=== PATIENT | male | born 1955 | race Caucasian/White ===

== ENCOUNTER → 2016-06-25 | Outpatient (CLI) | payer OTHER ==
[2016-06-27 03:47] LABS: Cardiolipin Ab IgG <9.0 GPL (<15); Cardiolipin Ab IgM <9.0 MPL (<12.5)
[2016-06-28 13:34] LABS: Protein C Antigen 92 % (72-160)
== END | disposition home or self-care (01) ==
LOC: LABWHC1 12:53
PROVIDERS: ATTEND Internal Medicine
DX: I26.99 Other pulmonary embolism without acute cor pulmonale (principal)
CPT/HCPCS: 36415; 81240; 81241; 81291; 83090; 85300; 85302; 85305; 86147

== ENCOUNTER → 2017-12-21 | Outpatient (CLI) | payer OTHER ==
--- NOTE | 2017-12-21 13:27 | CT ---
EXAMINATION TYPE: CT chest w con DATE OF EXAM: 12/21/2017 COMPARISON: HISTORY: solitary pulmonary nodule CT DLP: 116.2 mGycm, Automated exposure control for dose reduction was used. CONTRAST: Performed injected with 100mL mL of Isovue 300. TECHNIQUE: Axial images were obtained at 5 mm thick sections. Reconstructed images are reviewed on [employer] computer in the coronal plane. FINDINGS: Portion of the thyroid visualized is normal. Emphysematous changes are present through the lung quarles. There is a 1.1 x 0.8 cm density within the periphery of the right midlung. Series 4 image 28. Some ad ditional pneumonitis changes inferior to this lesion. This has enlarged from 2016. Small nodules in the periphery of the right middle lobe measuring 0.5 cm. Series 4 image 35. Small tr iangular area of increased densities along medial posterior pleural margin on the right measuring 0.7 cm. Series 4 image 38. A 0.8 cm nodular densities at the peripheral right lung base. Series 4 image 56. An additional oval n odule abutting the pleural surface measuring 1.1 x 0.6 cm is in the posterior lateral right lung base . Series 4 image 65. There may be a 1.3 cm right suprahilar lymph node. Additional lymphadenopathy is not enlarged by CT criteria. Few small left axillary lymph nodes are noted. The ascending aorta diameter at the level of the main pulmonary artery is 2.7 cm. The main pulmonary artery diameter at the bifurcation is 2.[address] sections are obtained through the upper abdomen. There are multiple small scattered hypode nsities within the liver. Some of these may be hepatic cysts. However, some more intermediate density are also present suggesting the possibility of metastatic lesions. The adrenal glands appear normal. Note is made of a small hiatal hernia. IMPRESSIONS: 1. Scattered nodules within the right lung discussed above. 2. Subtle hypodensities may be within the liver. Metastatic disease should be considered. 3. Clinical consideration for PET CT for additional workup is recommended
== END | disposition home or self-care (01) ==
LOC: RADCTMAIN 06:50
PROVIDERS: ATTEND Internal Medicine
DX: R91.8 Other nonspecific abnormal finding of lung field (principal)
CPT/HCPCS: 71260; Q9967

== ENCOUNTER → 2018-01-02 | Outpatient (CLI) | payer OTHER ==
--- NOTE | 2018-01-02 11:49 | US ---
EXAMINATION TYPE: US abdomen complete DATE OF EXAM: 01/02/2018 COMPARISON: CT chest 12/21/17 CLINICAL HISTORY: K76.89 other spec dis of liver. EXAM MEASUREMENTS: Liver Length: 13.5 cm Gallbladder Wall: 0.1 cm CBD: 0.3 cm Spleen: 7.0 cm Right Kidney: 10.2 x 4.4 x 4.1 cm Left Kidney: 10.5 x 5.2 x 5.1 cm Pancreas: Obscured by bowel gas, duct = 0.3 cm Liver: Multiple tiny cysts seen throughout liver, largest = 1 cm Gallbladder: polyps noted on anterior and posterior wall = 0.5 cm Evidence for sonographic Benitez's sign: No CBD: wnl Spleen: wnl, partially obscured by overlying bowel gas. Right Kidney: wnl Left Kidney: wnl Upper IVC: wnl Abd Aorta: wnl The visualized liver is homogenous. A few tiny thin-walled cysts are marked throughout the liver on i mages saved by technologist The intrahepatic portion of the IVC and visualized abdominal aorta are wi thin normal limits. There is no evidence of shadowing mobile cholelithiasis. Common bile duct is un remarkable. The pancreas is obscured by overlying bowel gas on images saved. The visualized portion of spleen is unremarkable. Kidneys are symmetric and free of hydronephrosis. No renal lesions are seen. IMPRESSION: Few small thin-walled simple appearing cysts are scattered throughout the liver on images saved. Findings correlate with recent CT.
== END | disposition home or self-care (01) ==
LOC: RADUSWWP 10:45
PROVIDERS: ATTEND Internal Medicine
DX: K76.89 Other specified diseases of liver (principal)
CPT/HCPCS: 76700

== ENCOUNTER → 2018-07-07 | Outpatient (CLI) | payer OTHER ==
--- NOTE | 2018-07-09 06:17 | PE ---
EXAMINATION TYPE: PET CT fusion skull to thigh DATE OF EXAM: 07/07/2018 COMPARISON: Chest CT December 21, 2017 HISTORY: Solitary pulmonary nodule, abnormal CT. TECHNIQUE: Following the intravenous administration of 10.908 mCi of F-18 FDG, whole body images are performed from the skull base to the midthigh. Images are reviewed on the computer in the coronal, axial, and sagittal planes. Reconstructed rotating images are created on independent workstation and reviewed on the computer. A noncontrast CT is performed in conjunction with the PET scan. SCAN: Initial Scan FINDINGS: SKULL BASE AND NECK: No areas of suspicious hypermetabolic uptake are present. CHEST, MEDIASTINUM, AND HILAR REGION: Background fairly advanced emphysematous change is seen. There is some scarlike opacity in the lateral aspect inferior posterior right upper lobe with a hypermetabo lic 10 x 9 mm nodule axial image 104, max SUV is 8.3. No additional areas of suspicious hypermetabolic nodules or adenopathy is identified. Stable 4 to 5 m m ametabolic nodule right middle lobe axial image 111 is noted. Stable 6 x 6 mm ametabolic subpleural right lower lobe nodule axial image 138. Stable 8 x 5 mm subpleural nodule right lung base posterior ly axial image 149 is ametabolic. Prominent right tracheobronchial lymph node measuring 1.5 x 0.9 cm on axial image 110 is ametabolic. ABDOMEN AND PELVIS: No areas of abnormal hypermetabolic uptake. OSSEOUS STRUCTURES: No areas of abnormal hypermetabolic uptake. OTHER CT: Mild calcified plaque bilateral carotid bulbs. Mild coronary artery calcification which is noted marker for underlying coronary artery disease. Scattered subcentimeter low dense lesions throughout the liver are too small to further characterize but presumed benign. Mild/moderate calcified plaque of aorta extends into branch vessels. There is enlarged prostate gland. Bladder wall is mild to moderately concentrically thickened. Findin gs are consistent with outlet obstruction related to BPH, correlate clinically. Scattered pelvic phle boliths are seen. Some facet arthropathy lower lumbar spine is present. IMPRESSION: Advanced emphysematous change with hypermetabolic uptake in the lateral inferior posterio r right upper lung nodule. Smaller nodules are ametabolic. No adenopathy or metastatic disease is isra ntified.
== END | disposition home or self-care (01) ==
LOC: RADPETMAIN 10:22
PROVIDERS: ATTEND Internal Medicine
DX: J43.9 Emphysema, unspecified (principal); R91.8 Other nonspecific abnormal finding of lung field
CPT/HCPCS: 78815; A9552

== ENCOUNTER → 2018-07-24 | Outpatient (CLI) | payer OTHER ==
--- NOTE | 2018-07-24 10:45 | CT ---
EXAMINATION TYPE: CT brain wo/w con DATE OF EXAM: 07/24/2018 COMPARISON: Correlation PET/CT 07/07/2018 HISTORY: 63-year-old male with Headaches, history of blood clots, right lung nodule TECHNIQUE: Examination was done in axial plane before and after intravenous contrast. 100 mL Isovue -300 IV contrast was administered. Coronal and sagittal reconstructions performed. CT DLP: 2330 mGycm Automated exposure control for dose reduction was used. FINDINGS: There is no evidence of acute intracranial hemorrhage, acute ischemic changes, mass, mass-effect, or extra-axial fluid collection. There is no effacement of cerebral sulci or basal subarachnoid cister ns. There is no hydrocephalus. There is no midline shift. Trujillo-white matter distinction is preserv ed. No enhancing intracranial lesions. Dural venous sinuses are patent. Scattered mild mucosal thickening within the ethmoid air cells. Globes are intact. Mastoid air cells are well pneumatized. IMPRESSION: No acute intracranial abnormality seen. No enhancing intracranial lesions. Mild chronic ethmoid sinus disease.
== END | disposition home or self-care (01) ==
LOC: RADCTMAIN 09:08
PROVIDERS: ATTEND Internal Medicine Hematology & Oncology
DX: R51 Headache (principal); Z88.0 Allergy status to penicillin; Z88.1 Allergy status to other antibiotic agents
CPT/HCPCS: 70470; Q9967

== ENCOUNTER → 2018-07-26 | Outpatient (CLI) | payer OTHER ==
[2018-07-26 17:17] LABS: Basophils % (A) 0 %; Eosinophils % (A) 0 %; HCT 46.6 % (39.0-53.0); HGB 15.6 gm/dL (13.0-17.5); Lymphocytes # (A) 0.9 k/uL (1.0-4.8); Lymphocytes % (A) 6 %; MCH 30.5 pg (25.0-35.0); MCHC 33.5 g/dL (31.0-37.0); Mean Platelet Volume 6.3; Monocytes # (A) 0.4 k/uL (0-1.0); Monocytes % (A) 3 %; Neutrophils # (A) 12.2 k/uL (1.3-7.7); Neutrophils % (A) 90 %; Platelet Count 375 k/uL (150-450); RBC 5.12 m/uL (4.30-5.90); RDW 12.5 % (11.5-15.5); WBC 13.6 k/uL (3.8-10.6)
[2018-07-26 22:59] LABS: Anion Gap 7.6 mmol/L (4.00-12.00); Carbon Dioxide 28.4 mmol/L (21.6-31.8); Potassium 4.8 mmol/L (3.5-5.5)
== END ==
LOC: LABWHC1 16:35
PROVIDERS: ATTEND Thoracic Surgery (Cardiothoracic Vascular Surgery)
DX: Z01.818 Encounter for other preprocedural examination (principal); Z01.812 Encounter for preprocedural laboratory examination
CPT/HCPCS: 36415; 80051; 82565; 82947; 84520; 85025; 93005

== ENCOUNTER 2018-08-02 09:27 | Inpatient (IN) | payer OTHER ==
[~2018-08-02 09:27] MED LIST: CLINDAMYCIN 900 MG in DEXTROSE 5% IN WATER 50 ML IVPB ONE; DEXAMETHASONE SOD PHOSPHATE 10 MG/ML 1 ML VIAL IV ONE; LACTATED RINGERS 1,000 ML IV SCH; LIDOCAINE 1% 20 ML VIAL (10MG/ML) FOR IV START INTRADERMA PRN; MIDAZOLAM (PF) 2 MG/2 ML VIAL IV PRN; ONDANSETRON 4 MG/2 ML VIAL IVP ONE; SCOPOLAMINE 1.5MG/72HR PATCH TRANSDERM ONE
[2018-08-02] MEDS ORDERED: fentaNYL (PF) 50 MCG/ML 2 ML AMP ONE (11:47)
[2018-08-02] MEDS ORDERED: SUCCINYLCHOLINE CHLORIDE 100 MG/5 ML SYR IV ONE (11:47)
[2018-08-02] MEDS ORDERED: GLYCOPYRROLATE 0.2 MG/ML 2 ML VIAL ONE (11:47)
[2018-08-02] MEDS ORDERED: MIDAZOLAM 2 MG/2 ML VIAL ONE (11:47)
[2018-08-02] MEDS ORDERED: HYDROmorphone (PF) 1 MG/ML ONE (11:47)
[2018-08-02] MEDS ORDERED: NEOSTIGMINE 1 MG/ML 10 ML VIAL ONE (11:47)
[2018-08-02] MEDS ORDERED: PHENYLEPHRINE-0.9% NACL SYG 1 MG/10 ML SYRINGE ONE (11:47)
[2018-08-02] MEDS ORDERED: ROCURONIUM BROMIDE 10 MG/ML 10 ML VIAL IV ONE (11:47)
[2018-08-02] MEDS ORDERED: PROPOFOL 10 MG/ML 20 ML VIAL IV ONE (11:47)
[2018-08-02] MEDS ORDERED: LIDOCAINE 1% INJ 10MG/ML (20 ML MDV) ONE (11:47)
[2018-08-02] MEDS ORDERED: BUPIVACAINE (PF) 0.5% 30 ML VIAL SQ ONE (12:26)
[2018-08-02] MEDS ORDERED: LACTATED RINGERS 1,000 ML IV ONE (12:42)
[2018-08-02] MEDS ORDERED: VARENICLINE 0.5 MG TAB PO SCH (12:45)
--- NOTE | 2018-08-02 12:51 | P.OP ---
Date of Procedure: 08/02/18 Preoperative Diagnosis: Right upper lobe mass Postoperative Diagnosis: Same Procedure(s) Performed: Wedge resection right upper lobe mass Anesthesia: GIN Surgeon: Gilberto Nickerson Ophthalmic Photographer #1: Felipe Hamilton Estimated Blood Loss (ml): 5 IV fluids (ml): 1,000 Urine output (ml): 0 Pathology: other (Wedge resection right upper lobe sent for pathology and culture) Condition: stable Disposition: PACU Indications for Procedure: 63-year-old male had computed tomography scan demonstrating multiple nodules in the right lung. PET scan was performed at an interval. This showed uptake in one nodule in the right upper lobe which was the largest nodule in which had increased in size from the time of the computed tomography scan. Resection was indicated for diagnosis. Operative Findings: Proximally 1 cm nodule in the right upper lobe resected with good gross margins. Cutting into the nodule revealed solid tissue consistent with tumor. A small piece was sent for culture. Description of Procedure: The patient was brought to the operating room, placed supine on the operating table, anesthetized and intubated. Double lumen endotracheal tube was positi oned appropriately with fiberoptic bronchoscopy and secured. The patient was turned in the left lateral decubitus position and the right chest sterilely prepped and draped. 3 one-inch incisions were made in the right chest. Single lung ventilation was initiated. Video thoracoscope was introduced. The lung did not deflate immediately due to poor compliance. After careful palpation of the right upper lobe in the area indicated by the CAT scan the nodule was identified. A broad wedge resection was performed with multiple firings of Endo BELIA stapler. Specimen was placed in an Endo Catch bag and brought out onto the field. 28-German chest tube was placed through separate stab incision and positioned posterior apically. It was secured with 0 Ethibond suture. The lung was inflated under thoracoscopic visualization. Scope was then removed and the incisions closed with layers of Vicryl suture. Skin glue and dry sterile dressings were applied. The specimen was cut on the back table with the findings as noted above.
[2018-08-02] MEDS: HYDROmorphone 0.5 MG/0.5 ML SYRINGE IVP PRN ×2 (13:05→13:19)
--- NOTE | 2018-08-02 13:16 | XR ---
EXAMINATION TYPE: XR chest 1V portable DATE OF EXAM: 08/02/2018 CLINICAL HISTORY: Post-VATS . TECHNIQUE: Single AP portable frontal view of the chest is obtained. COMPARISON: Chest CT December 21, 2017. PET/CT July 07, 2018. FINDINGS: There is new right apical chest tube. There is background chronic emphysematous change wit h right upper lung atelectasis and/or edema. Mild overall interstitial edema is present bilaterally. Cardiac silhouette size appears within normal limits. Osseous structures are intact. Interval resecti on of lateral right upper lung nodule or neoplasm. IMPRESSION: Interval right-sided surgery with right apical chest tube. Mild bilateral interstitial ed lesley with slightly more prominent focal edema and/or atelectasis right upper lung. No significant pneu mothorax.
[2018-08-02] MEDS ORDERED: IPRATROPIUM-ALBUTEROL 3 ML NEB IH PRN (14:20)
[2018-08-02] MEDS ORDERED: DEXTROSE 5%-0.45% NACL 1,000 ML IV SCH (14:20)
[2018-08-02] MEDS ORDERED: ONDANSETRON 4 MG/2 ML VIAL IVP PRN (14:20)
[2018-08-02] MEDS: traMADol 50 MG TAB PO SCH ×3 (16:15→22:59)
--- NOTE | 2018-08-02 16:23 | P.CNPUL ---
History of Present Illness Consult date: 08/02/18 Reason for consult: other (Status post resection of right upper lobe, COPD.) Chief complaint: Status post wedge resection right upper lobe History of present illness: This is a 63-year-old white male with history of abnormal CT of the chest showing multiple pulmonary nodules. However one nodule in the right upper lobe has been showing increased in size, and he had abnormal PET scan showing increased activity in the right upper lobe nodule itself. Patient was evaluated last in my office on 06/12/2018, and he was eventually referred to Dr. Nickerson. Patient is now status post right upper lobe wedge resection, postoperatively was asked to see him on consultation. Patient is known to have history of multiple medical problems including COPD, tobacco dependence syndrome, previous history of pulmonary embolism. His FEV1 is normal in the range of 66%, FEV1/FVC is 56%, DLCO is in the range of 44%. Patient was seen today postoperatively, seems to be very comfortable, in no distress, postoperative chest x-ray showed right sided chest tube in place, and no evidence of pneumothorax. Patient denies any cough wheezing shortness of breath, denies any chest pain. Review of Systems Constitutional: Denies weight loss, fevers chills, night sweats. Eyes: Denies diplopia blurred vision. Ears: Denies earache nose, mouth and throat: Denies sore throat, no nasal discharge, . Cardiovascular: Presently denies any chest pain, no palpitations, no orthopnea, no PND. Respiratory: As noted in HPI. No cough no wheezing no shortness of breath no chest pain. Gastrointestinal: Has nausea vomiting abdominal pain melena or hematemesis. Genitourinary: Denied dysuria frequency urgency. Musculoskeletal: Denies arthralgia or myalgia. Integumentary: Denies any rashes Neurological: No headache no blurred vision no dizziness.. Psychiatric: Denies symptoms of active depression Endocrine: Denies heat or cold intolerance. Hematologic: Denies clotting bleeding or bruising. Past Medical History Past Medical History: COPD, Pneumonia, Pulmonary Embolus (PE) Additional Past Medical History / Comment(s): PE 2017, recent resp. infection- finished rx- symptoms cleared, History of Any Multi-Drug Resistant Organisms: None Reported Past Surgical History: Orthopedic Surgery Additional Past Surgical History / Comment(s): left shoulder- ELECTROCUTED HAD TO REMOVE BONE Past Anesthesia/Blood Transfusion Reactions: No Reported Reaction Smoking Status: Former smoker - Past Family History Father Family Medical History: Cancer Additional Family Medical History / Comment(s): . Brother(s) Family Medical History: Cancer Medications and Allergies Home Medications Medication Instructions Recorded Confirmed Type Albuterol Sulfate [Proair Hfa] 1 - 2 puff INHALATION RT-Q4H PRN 07/30/18 08/02/18 History Aspirin [Adult Low Dose Aspirin EC] 81 mg PO DAILY 07/30/18 08/02/18 History Benzonatate [Benzonatate Perle] 200 mg PO HS 07/30/18 08/02/18 History Cholecalciferol (Vitamin D3) 5,000 unit PO DAILY 07/30/18 08/02/18 History [Vitamin D3] Sildenafil Citrate [Viagra] 100 mg PO DAILY PRN 07/30/18 08/02/18 History Varenicline Tartrate [Chantix 0.5 mg PO DIRECTED 07/30/18 08/02/18 History Starter Pack] Allergies Allergy/AdvReac Type Severity Reaction Status Date / Time ciprofloxacin [From Cipro] Allergy Swelling/flushed Verified 08/02/18 14:37 face Penicillins Allergy Swelling/flushed Verified 08/02/18 14:37 face Physical Exam Vitals: Vital Signs Temp Pulse Resp BP Pulse Ox 08/02/18 13:45 79 18 130/72 97 08/02/18 13:30 83 18 126/72 100 08/02/18 13:15 67 18 125/74 100 08/02/18 12:57 97 F L 78 18 126/73 100 08/02/18 09:44 98.7 F 102 H 16 133/81 97 Intake and Output 08/02/18 08/02/18 08/02/18 06:59 14:59 22:59 Intake Total 1256 Output Total 15 Balance 1241 Intake: IV 1256 Output: Estimated Blood Loss 15 Other: # Voids 0 # Bowel Movements 0 Physical Exam: Revealed a 63-year-old white male in no distress. Head: Atraumatic, normocephalic. HEENT:[Neck is supple.] [No neck masses.] [No thyromegaly.] [No JVD.] PERRLA, EOMI, no icterus. Chest: [Clear throughout, no crackles, no rhonchi, no wheezes.] Right-sided chest tube was noted. Cardiac Exam: [Normal S1 and S2, no S3 gallop, no murmur.] Abdomen: [Soft, nontender, no megaly, no rebound, no guarding, normal bowel sounds.] Extremities: [No clubbing, no edema, no cyanosis.] Neurological Exam: [No focal neurologic deficit.] Alert oriented 3. Psychiatric: Normal mood affect and mental status examination. Lymphatics: No lymphadenopathy. Skin: No rashes. Results - Diagnostic Findings Chest x-ray: image reviewed (As noted in HPI.) Assessment and Plan Assessment: Impression: Status post right upper lobe wedge resection for suspicious right upper lobe pulmonary nodule. Postoperative day #0. 2 moderate severe COPD, presently asymptomatic. 3 history of pulmonary embolism 4 tobacco dependence syndrome Recommendation: Continue present treatment plan including pain control, incentive spirometry, early ambulation, bronchodilators, discussed his condition with him and with his family at bedside. We'll continue to follow. Time with Patient: Greater than 30
[2018-08-02] MEDS: IPRATROPIUM-ALBUTEROL 3 ML NEB IH SCH ×2 (16:55→21:09)
[2018-08-02] MEDS: ceFAZolin IN SWFI 2 GM/20 ML SYRINGE IVP SCH (18:03)
[2018-08-02] MEDS: KETOROLAC 30 MG/ML 1 ML VIAL IVP SCH ×2 (18:03→23:00)
[2018-08-02] MEDS: HEPARIN SODIUM,PORCINE 5,000 UNIT/ML 1 ML VIAL SQ SCH ×2 (18:05→23:00)
[2018-08-02] MEDS: VARENICLINE 1 MG TAB PO SCH (20:12)
[2018-08-02] MEDS: BENZONATATE 100 MG CAP PO SCH (20:12)
[2018-08-02] MEDS: SYMBICORT 160-4.5 MCG INHALER INHALATION SCH (21:09)
[2018-08-03 02:00] LABS: Glucose,Whole Blood 129 mg/dL (75-99)
[2018-08-03] MEDS: ceFAZolin IN SWFI 2 GM/20 ML SYRINGE IVP SCH (02:16)
[2018-08-03] MEDS: KETOROLAC 30 MG/ML 1 ML VIAL IVP SCH ×3 (06:28→17:31)
[2018-08-03 07:54] LABS: Anion Gap 7 mmol/L; Blood Urea Nitrogen 17 mg/dL (9-20); Calcium 9.1 mg/dL (8.4-10.2); Carbon Dioxide 29 mmol/L (22-30); Chloride 97 mmol/L (98-107); Glucose 123 mg/dL (74-99); Potassium 5.4 mmol/L (3.5-5.1); Sodium 133 mmol/L (137-145)
[2018-08-03 07:58] LABS: Basophils % (A) 0 %; Eosinophils % (A) 0 %; HCT 45.1 % (39.0-53.0); HGB 14.6 gm/dL (13.0-17.5); Lymphocytes # (A) 0.9 k/uL (1.0-4.8); Lymphocytes % (A) 7 %; MCH 29.7 pg (25.0-35.0); MCHC 32.4 g/dL (31.0-37.0); MCV 91.7 fL (80.0-100.0); Mean Platelet Volume 6.6; Monocytes % (A) 8 %; Neutrophils # (A) 10.3 k/uL (1.3-7.7); Neutrophils % (A) 83 %; Platelet Count 326 k/uL (150-450); RBC 4.92 m/uL (4.30-5.90); WBC 12.5 k/uL (3.8-10.6)
--- NOTE | 2018-08-03 08:12 | XR ---
EXAMINATION TYPE: XR chest 2V DATE OF EXAM: 08/03/2018 COMPARISON: 08/02/2018 TECHNIQUE: PA and lateral views submitted. HISTORY: Post VATS FINDINGS: There is new right apical chest tube. There is background chronic emphysematous change with right upp er lung atelectasis and/or edema. Mild overall interstitial edema is present bilaterally. Cardiac shawn houette size appears within normal limits. Osseous structures are intact. Proximal 5% right apical pn eumothorax. Vague nodularity left upper lobe. IMPRESSION: 1. Postoperative change appears stable with approximate 5% right apical pneumothorax. 2. Correlate for underlying COPD. 3. There is vague 1 cm nodularity left upper lobe. Apical lordotic
[2018-08-03] MEDS: SYMBICORT 160-4.5 MCG INHALER INHALATION SCH ×2 (08:26→19:59)
[2018-08-03] MEDS: IPRATROPIUM-ALBUTEROL 3 ML NEB IH SCH ×4 (08:26→19:59)
[2018-08-03] MEDS: traMADol 50 MG TAB PO SCH ×4 (08:46→21:51)
[2018-08-03] MEDS: HEPARIN SODIUM,PORCINE 5,000 UNIT/ML 1 ML VIAL SQ SCH ×2 (08:47→17:30)
[2018-08-03] MEDS: ASPIRIN 81 MG PO SCH (08:48)
[2018-08-03] MEDS: VARENICLINE 1 MG TAB PO SCH ×2 (08:48→21:53)
[2018-08-03] MEDS: CHOLECALCIFEROL 1,000 UNIT TAB PO SCH (08:48)
--- NOTE | 2018-08-03 11:30 | P.PN ---
Subjective Progress Note Date: 08/03/18 Principal diagnosis: Right upper lobe mass. Previous medical history of recent smoking cessation with prior [id number] history, COPD with preoperative FEV1 66% of predicted, pulmonary embolism and 2017, and family history of cancer. POD #1 wedge resection right upper lobe mass The patient sitting up in bed in no acute distress on the cardiac stepdown unit. Denies pain or shortness of breath. Actively using incentive spirometry. Positive intermittent air leak present in right pleural chest tube which has been to waterseal since last night. Objective - Vital Signs Vital signs: Vital Signs Temp 98 F 08/03/18 08:00 Pulse 78 08/03/18 08:41 Resp 18 08/03/18 08:00 BP 113/64 08/03/18 08:00 Pulse Ox 93 L 08/03/18 08:26 Intake & Output 08/02/18 08/03/18 08/03/18 18:59 06:59 18:59 Intake Total 1256 1240 236 Output Total 15 7 Balance 1241 1233 236 Weight 65 kg Intake: IV 1256 Intake, IV Titration 440 Amount Dextrose 5%-0.45% NaCl 1, 440 000 ml @ 40 mls/hr IV . Q24H MATTHEW Rx#:[id number] Oral 800 236 Output: Chest Tube Drainage 7 Chest Tube Right Anterior 7 Chest Estimated Blood Loss 15 Other: Voiding Method Urinal Urinal # Voids 1 1 # Bowel Movements 0 - Constitutional General appearance: Present: cooperative, no acute distress - Respiratory Details: Lungs sounds diminished bilaterally. Respirations even, nonlabored. Currently on room air with oxygen saturation 96%. Able to achieve 1500 mL on his incentive spirometry. Strong cough. Right pleural chest tube to waterseal, no drainage overnight, positive intermittent air leak present. - Cardiovascular Details: S1, S2 present. Regular rate and rhythm, sinus rhythm on telemetry. Palpable peripheral pulses bilaterally. No edema present. No calf pain or tenderness noted. SCDs present. - Gastrointestinal Gastrointestinal Comment(s): Abdomen soft, nontender, nondistended. Active bowel sounds 4 quadrants. Tolerating diet. - Genitourinary Genitourinary Comment(s): Voiding clear, yellow urine. - Integumentary Integumentary Comment(s): Skin is warm and dry with evidence of good perfusion. Right pleural chest tube site covered with dry intact dressing. - Neurologic Neurologic: Present: CNII-XII intact - Musculoskeletal Musculoskeletal: Present: gait normal, strength equal bilaterally - Psychiatric Psychiatric: Present: A&O x's 3, appropriate affect, intact judgment & insight - Allied health notes Allied health notes reviewed: nursing - Labs CBC & Chem 7: 08/03/18 06:54 08/03/18 06:54 Labs: Abnormal Lab Results - Last 24 Hours (Table) 08/03/18 08/03/18 08/03/18 Range/Units 01:58 06:54 06:54 WBC 12.5 H (3.8-10.6) k/uL Neutrophils # 10.3 H (1.3-7.7) k/uL Lymphocytes # 0.9 L (1.0-4.8) k/uL Sodium 133 L (137-145) mmol/L Potassium 5.4 H (3.5-5.1) mmol/L Chloride 97 L (98-107) mmol/L Glucose 123 H (74-99) mg/dL POC Glucose (mg/dL) 129 H (75-99) mg/dL Microbiology - Last 24 Hours (Table) 08/02/18 12:44 Gram Stain - Preliminary Lung - Right Upper Lobe Tissue Culture - Preliminary 08/02/18 12:44 Acid Fast Bacilli Smear - Final Lung - Right Upper Lobe Acid Fast Bacilli Culture - Preliminary 08/02/18 12:44 Fungal Culture - Preliminary Lung - Right Upper Lobe - Imaging and Cardiology Chest x-ray: report reviewed, image reviewed Assessment and Plan Assessment: 1. Right upper lobe mass, status post wedge resection 2. Recent smoking cessation with prior to [id number] history 3. COPD with preoperative FEV1 66% of predicted 4. History of pulmonary embolism in 2017 on no current anticoagulation 5. Family history of cancer Plan: 1. Will continue right pleural chest tube for another 24 hours on waterseal. Monitor for resolution of air leak 2. Will obtain chest x-ray tomorrow morning. If chest x-ray stable and no air leak present likely will discontinue right pleural chest tube. 3. Encourage incentive spirometry is 10 times every hour while awake. 4. Pain control with current medication regimen. 5. Increase activity, ambulate as tolerated. 6. Encourage continued smoking cessation. 7. Bronchodilators, inhaled steroids per pulmonology. 8. More recommendations to follow. Time with Patient: Greater than 30
--- NOTE | 2018-08-03 14:27 | P.PN ---
Subjective Progress Note Date: 08/03/18 Principal diagnosis: Status post right upper lobe wedge resection for a suspicious right upper lobe pulmonary nodule, postoperative day 1 This is a 63-year-old white male with history of abnormal CT of the chest showing multiple pulmonary nodules. However one nodule in the right upper lobe has been showing increased in size, and he had abnormal PET scan showing increased activity in the right upper lobe nodule itself. Patient was evaluated last in my office on 06/12/2018, and he was eventually referred to Dr. Nickerson. Patient is now status post right upper lobe wedge resection, postoperatively was asked to see him on consultation. Patient is known to have history of multiple medical problems including COPD, tobacco dependence syndrome, previous history of pulmonary embolism. His FEV1 is normal in the range of 66%, FEV1/FVC is 56%, DLCO is in the range of 44%. Patient was seen today postoperatively, seems to be very comfortable, in no distress, postoperative chest x-ray showed right sided chest tube in place, and no evidence of pneumothorax. Patient denies any cough wheezing shortness of breath, denies any chest pain. On 08/03/2018 patient is seen in follow-up on selective care unit, this is postoperative day 1, status post right upper lobe wedge resection for suspicious right upper lobe pulmonary nodule. Patient is calm and comfortable, he is resting in bed, in no acute distress, lung sounds are essentially clear on today's exam, his incentive spirometry effort is 2000, his pain is well controlled with oral medications, and patient is splinting his incision with deep breathing and coughing. 's been ambulating to the bathroom, tolerating activity well, vital signs are stable, room air pulse ox is 97%, patient is afebrile, hemodynamically stable, today chest x-ray has been reviewed with Dr. Mcgrath showing postoperative changes of the stable 5% right apical pneumothorax, underlying COPD, and a vague 1 cm nodularity in the left upper lobe. No acute events overnight, today's lab work has been noted Objective - Vital Signs Vital signs: Vital Signs Temp 97.4 F L 08/03/18 11:37 Pulse 88 08/03/18 13:23 Resp 18 08/03/18 11:37 BP 130/64 08/03/18 11:37 Pulse Ox 97 08/03/18 11:37 Intake & Output 08/02/18 08/03/1819 18:59 06:59 18:59 Intake Total 1256 1240 236 Output Total 15 7 Balance 1241 1233 236 Weight 65 kg Intake: IV 1256 Intake, IV Titration 440 Amount Dextrose 5%-0.45% NaCl 1, 440 000 ml @ 40 mls/hr IV . Q24H [facility] Rx#:[id number] Oral 800 236 Output: Chest Tube Drainage 7 Chest Tube Right Anterior 7 Chest Estimated Blood Loss 15 Other: Voiding Method Urinal Urinal # Voids 1 1 # Bowel Movements 0 - Exam GENERAL EXAM: Alert, pleasant, 63-year-old white male, on room air comfortable in no apparent distress. HEAD: Normocephalic/atraumatic. EYES: Normal reaction of pupils, equal size. Conjunctiva pink, sclera white. NOSE: Clear with pink turbinates. THROAT: No erythema or exudates. NECK: No masses, no JVD, no thyroid enlargement, no adenopathy. CHEST: No chest wall deformity. Symmetrical expansion. Right-sided chest tube in place, with occasional air leak LUNGS: Equal air entry with no crackles, wheeze, rhonchi or dullness. CVS: Regular rate and rhythm, normal S1 and S2, no gallops, no murmurs, no rubs ABDOMEN: Soft, nontender. No hepatosplenomegaly, normal bowel sounds, no guarding or rigidity. EXTREMITIES: No clubbing, no edema, no cyanosis, 2+ pulses and upper and lower extremities. MUSCULOSKELETAL: Muscle strength and tone normal. SPINE: No scoliosis or deformity SKIN: No rashes CENTRAL NERVOUS SYSTEM: Alert and oriented -3. No focal deficits, tone is normal in all 4 extremities. PSYCHIATRIC: Alert and oriented -3. Appropriate affect. Intact judgment and insight. - Labs CBC & Chem 7: 08/03/18 06:54 08/03/18 06:54 Labs: Abnormal Lab Results - Last 24 Hours (Table) 08/03/18 08/03/18 08/03/18 Range/Units 01:58 06:54 06:54 WBC 12.5 H (3.8-10.6) k/uL Neutrophils # 10.3 H (1.3-7.7) k/uL Lymphocytes # 0.9 L (1.0-4.8) k/uL Sodium 133 L (137-145) mmol/L Potassium 5.4 H (3.5-5.1) mmol/L Chloride 97 L (98-107) mmol/L Glucose 123 H (74-99) mg/dL POC Glucose (mg/dL) 129 H (75-99) mg/dL Microbiology - Last 24 Hours (Table) 08/02/18 12:44 Gram Stain - Preliminary Lung - Right Upper Lobe Tissue Culture - Preliminary 08/02/18 12:44 Acid Fast Bacilli Smear - Final Lung - Right Upper Lobe Acid Fast Bacilli Culture - Preliminary 08/02/18 12:44 Fungal Culture - Preliminary Lung - Right Upper Lobe Assessment and Plan Plan: Assessment Status post right upper lobe wedge resection for suspicious right upper lobe pulmonary nodule. Postoperative day #0. 2 moderate severe COPD, presently asymptomatic. 3 history of pulmonary embolism 4 tobacco dependence syndrome Plan: Encouraging deep breathing and coughing, incentive spirometry use, ambulation, pain control. Tandem bronchodilators, today's chest x-ray has been reviewed, shows stable postoperative changes, and 5% right apical pneumothorax, right- sided chest tube with small occasional leak. Pain is under good control. Tolerating ambulation, will continue to follow I performed a history & physical examination of the patient and discussed their management with my nurse practitioner, Leti Gallagher. I reviewed the nurse practitioner's note and agree with the documented findings and plan of care. Lung sounds are positive for clear breath sounds. The findings and the impression was discussed with the patient. I attest to the documentation by the nurse practitioner. Time with Patient: Less than 30
[2018-08-03] MEDS: BENZONATATE 100 MG CAP PO SCH (21:52)
[2018-08-04] MEDS: KETOROLAC 30 MG/ML 1 ML VIAL IVP SCH ×3 (00:34→11:40)
[2018-08-04] MEDS: HEPARIN SODIUM,PORCINE 5,000 UNIT/ML 1 ML VIAL SQ SCH ×2 (00:34→08:28)
--- NOTE | 2018-08-04 06:29 | XR ---
EXAMINATION TYPE: XR chest 2V DATE OF EXAM: 08/04/2018 HISTORY: Post VATS. REFERENCE: Previous study dated 08/03/2018. FINDINGS: Patient's right-sided chest tubes remain in place, unchanged in appearance. I do not see ev idence of a pneumothorax at this time. There are underlying changes of COPD with chronic interstitial fibrosis. The heart is not enlarged. There is a small right effusion. IMPRESSION: 1. COPD. 2. I DO NOT IDENTIFY DEFINITE PNEUMOTHORAX AT THIS TIME.
[2018-08-04] MEDS: SYMBICORT 160-4.5 MCG INHALER INHALATION SCH (07:34)
[2018-08-04] MEDS: IPRATROPIUM-ALBUTEROL 3 ML NEB IH SCH ×2 (07:34→12:03)
[2018-08-04] MEDS: traMADol 50 MG TAB PO SCH (08:28)
[2018-08-04] MEDS: CHOLECALCIFEROL 1,000 UNIT TAB PO SCH (08:28)
[2018-08-04] MEDS: VARENICLINE 1 MG TAB PO SCH (08:28)
[2018-08-04] MEDS: ASPIRIN 81 MG PO SCH (08:28)
--- NOTE | 2018-08-04 11:59 | P.PN ---
Subjective Progress Note Date: 08/04/18 Principal diagnosis: Status post right upper lobe wedge resection for suspicious right upper lobe pulmonary nodule This is a 63-year-old white male with history of abnormal CT of the chest showing multiple pulmonary nodules. However one nodule in the right upper lobe has been showing increased in size, and he had abnormal PET scan showing increased activity in the right upper lobe nodule itself. Patient was evaluated last in my office on 06/12/2018, and he was eventually referred to Dr. Nickerson. Patient is now status post right upper lobe wedge resection, postoperatively was asked to see him on consultation. Patient is known to have history of multiple medical problems including COPD, tobacco dependence syndrome, previous history of pulmonary embolism. His FEV1 is normal in the range of 66%, FEV1/FVC is 56%, DLCO is in the range of 44%. Patient was seen today postoperatively, seems to be very comfortable, in no distress, postoperative chest x-ray showed right s ided chest tube in place, and no evidence of pneumothorax. Patient denies any cough wheezing shortness of breath, denies any chest pain. On 08/03/2018 patient is seen in follow-up on selective care unit, this is postoperative day 1, status post right upper lobe wedge resection for suspicious right upper lobe pulmonary nodule. Patient is calm and comfortable, he is resting in bed, in no acute distress, lung sounds are essentially clear on today's exam, his incentive spirometry effort is 2000, his pain is well controlled with oral medications, and patient is splinting his incision with deep breathing and coughing. 's been ambulating to the bathroom, tolerating activity well, vital signs are stable, room air pulse ox is 97%, patient is afebrile, hemodynamically stable, today chest x-ray has been reviewed with Dr. Mcgrath showing postoperative changes of the stable 5% right apical pneumothorax, underlying COPD, and a vague 1 cm nodularity in the left upper lobe. No acute events overnight, today's lab work has been noted The patient is seen today 08/04/2018 in follow-up on the selective care unit. He is currently awake and alert in no acute distress. He is resting fairly comfortably in bed. Chest tube was removed this morning. He does have some drainage from the site. Morning chest x-ray did not reveal any evidence of pneumothorax. Follow-up chest x-ray is pending. He is maintaining good O2 saturations in the 90s on room air. He's been afebrile. Hemodynamically stable . Biopsies pending. Objective - Vital Signs Vital signs: Vital Signs Temp 97.8 F 08/04/18 08:32 Pulse 94 08/04/18 08:32 Resp 20 08/04/18 08:32 BP 105/65 08/04/18 08:32 Pulse Ox 94 L 08/04/18 08:32 Intake & Output 08/03/18 08/04/18 08/04/18 18:59 06:59 18:59 Intake Total 356 230 240 Output Total 2 Balance 356 228 240 Weight 65.5 kg Intake: Oral 356 230 240 Output: Chest Tube Drainage 2 Chest Tube Right Anterior 2 Chest Other: Voiding Method Urinal Urinal Urinal # Voids 3 1 # Bowel Movements 0 - Exam GENERAL EXAM: Alert, pleasant, 63-year-old male, on room air comfortable in no apparent distress. HEAD: Normocephalic/atraumatic. EYES: Normal reaction of pupils, equal size. Conjunctiva pink, sclera white. NOSE: Clear with pink turbinates. THROAT: No erythema or exudates. NECK: No masses, no JVD, no thyroid enlargement, no adenopathy. CHEST: No chest wall deformity. Symmetrical expansion. Right-sided dressing dry and intact. LUNGS: Equal air entry with no crackles, wheeze, rhonchi or dullness. CVS: Regular rate and rhythm, normal S1 and S2, no gallops, no murmurs, no rubs ABDOMEN: Soft, nontender. No hepatosplenomegaly, normal bowel sounds, no guarding or rigidity. EXTREMITIES: No clubbing, no edema, no cyanosis, 2+ pulses and upper and lower extremities. MUSCULOSKELETAL: Muscle strength and tone normal. SPINE: No scoliosis or deformity SKIN: No rashes CENTRAL NERVOUS SYSTEM: No focal deficits, tone is normal in all 4 extremities. PSYCHIATRIC: Alert and oriented -3. Appropriate affect. Intact judgment and insight. - Labs CBC & Chem 7: 08/03/18 06:54 08/03/18 06:54 Labs: Microbiology - Last 24 Hours (Table) 08/02/18 12:44 Gram Stain - Preliminary Lung - Right Upper Lobe Tissue Culture - Preliminary Assessment and Plan Assessment: Assessment 1 Status post right upper lobe wedge resection for suspicious right upper lobe pulmonary nodule. 2 moderate severe COPD, presently asymptomatic. 3 history of pulmonary embolism 4 tobacco dependence syndrome Plan: The patient was seen and evaluated by Dr. Mcgrath. Morning chest x-ray reviewed. Chest tube has been discontinued. Follow-up chest x-ray pending. Biopsy pending. He is stable for discharge from the pulmonary standpoint. Follow up in our office in 1 week. He and his are encouraged to call sooner with any questions or concerns. I, the cosigning physician, performed a history & physical examination of the patient. Lungs sounds crackles in the right base. Maintaining good O2 saturations in the 90s on room air. I discussed the assessment and plan of care with my nurse practitioner, Joseline Kamara. I attest to the above note as dictated by her.
[2018-08-04 12:09] VITALS: RESP 16
--- NOTE | 2018-08-04 12:09 | XR ---
EXAMINATION TYPE: XR chest 1V portable DATE OF EXAM: 08/04/2018 HISTORY: Post-chest tube removal. REFERENCE: Previous study dated 08/04/2018. FINDINGS: The patient's right pleural drain has been removed. I do not see a sizable pneumothorax. There are chronic pleural parenchymal changes present in the right upper lobe. Lungs otherwise clear. Pleural space are clear. The heart is not enlarged. IMPRESSION: I DO NOT SEE A POST CHEST TUBE REMOVAL COMPLICATION.
[2018-08-04 12:30] VITALS: BP 105/72; PULSE 67; TEMP 98.1
--- NOTE | 2018-08-04 14:02 | P.DS ---
Providers Date of admission: 08/02/18 09:27 Expected date of discharge: 08/04/18 Attending physician: Gilberto Nickerson Primary care physician: Lalito Morin [facility] Course: FINAL DIAGNOSIS: 1. Right upper lobe mass, status post wedge resection 2. Recent smoking cessation with prior to [id number] history 3. COPD with preoperative FEV1 66% of predicted 4. History of pulmonary embolism in 2017 on no current anticoagulation 5. Family history of cancer PRINCIPAL PROCEDURE: 1. Wedge resection right upper lobe mass. HISTORY OF PRESENT ILLNESS: This is 63-year-old gentleman who is followed by Dr. Lalito Morin on an outpatient basis. He has a past medical history significant for a right upper lobe lung mass which has been enlarging in size, history of smoking which he quit 1 month ago, COPD with a preoperative FEV1 of 66% predicted value, history of pulmonary embolism in 2017 and a family history of cancer. He has a history of several small masses in his lung that have been followed for a couple years. Recently, the right upper lobe mass has increased in size to 1.1 x 0.8 cm in diameter. On 07/07/2017 the patient underwent a PET scan which demonstrated advanced emphysematous change with hyper metabolic uptake in the lateral inferior posterior right upper lung nodule with a max SUV of 8.3 and no adenopathy or metastatic disease was identified. Subsequently due to the metabolic uptake seen in the PET scan he was referred to Dr. Gilberto Nickerson for further evaluation and possible surgical recommendations. The results of the computed tomography scan of the chest and PET scan were reviewed with the patient by Dr. Gilberto Nickerson and recommendations were to proceed with a right upper lobe wedge resection. Risks and benefits of the surgery were discussed with the patient by Dr. Gilberto Nickerson and the patient wished to proceed with an elective VATS with wedge resection. HOSPITAL COURSE: Patient was admitted to the hospital and after obtaining consent he was taken to the operating room where Dr. Gilberto Nickerson performed a right upper lobe mass wedge resection. After he was recovered, he was transferred to the 3 S cardiac stepdown unit where he was further monitored. His chest tube was placed to waterseal, no air leak was present and his chest tube was discontinued on postoperative day #2. A post-chest tube removal x-ray was completed and did not demonstrate any significant pneumothorax. His oxygen was titrated down, he was tolerating an oral diet, his pain was well-controlled and he was ready to be discharged home on postoperative day #2. He has received written and verbal instructions regarding his medications, activity restrictions and signs and symptoms regarding physician notification. The patient was instructed to follow-up with Dr. Gilberto Nickerson on , 08/09/2018 at 2 PM to discuss his pathology results. COMPLICATIONS: There were no postoperative complications. CONSULTATIONS: 1. Dr. Mcgrath for pulmonary management DISCHARGE INSTRUCTIONS: 1. No driving for 2 weeks, or until physician gives their ok. 2. The patient should sleep in their own bed, no medical bed needed. 3. Stairs are not an issue. If the bedroom is upstairs, it is advised that the patient go up at night and down in the morning for the first week. Go slowly, using handrail and take 1 step at a time. 4. MACO hose are to be worn for 30 days or until physician discontinues. 5. No lifting, pushing, or pulling more than 10 pounds for 2 weeks. The physician will advise of any restriction changes. 6. Continue pain control per as needed orders. 7. Continue with incentive spirometry and splinting/heart hugger until otherwise directed by the physician. 8. May shower and remove his dressing to his right lateral chest starting on 08/06/2018. 9. Please notify surgeon/nurse practitioner for temperature greater than 101F or purulent drainage from incisions 10. The importance of continued smoking cessation was discussed with the patient. Plan - Discharge Summary Discharge Rx Participant: Yes New Discharge Prescriptions: New Budesonide-Formot 160-4.5 Mcg [Symbicort 160-4.5 Mcg Inhaler] 2 puff INHALATION RT-BID #1 puff Acetaminophen [Tylenol Extra Strength] 500 mg PO Q6HR PRN #100 tablet PRN Reason: Pain Control Continue Sildenafil Citrate [Viagra] 100 mg PO DAILY PRN PRN Reason: erectile dysfuntion Cholecalciferol (Vitamin D3) [Vitamin D3] 5,000 unit PO DAILY Albuterol Sulfate [Proair Hfa] 1 - 2 puff INHALATION RT-Q4H PRN PRN Reason: Shortness Of Breath Varenicline Tartrate [Chantix Starter Pack] 0.5 mg PO DIRECTED Aspirin [Adult Low Dose Aspirin EC] 81 mg PO DAILY Benzonatate [Benzonatate Perle] 200 mg PO HS Discharge Medication List Albuterol Sulfate [Proair Hfa] 1 - 2 puff INHALATION RT-Q4H PRN 07/30/18 [History] Aspirin [Adult Low Dose Aspirin EC] 81 mg PO DAILY 07/30/18 [History] Benzonatate [Benzonatate Perle] 200 mg PO HS 07/30/18 [History] Cholecalciferol (Vitamin D3) [Vitamin D3] 5,000 unit PO DAILY 07/30/18 [History] Sildenafil Citrate [Viagra] 100 mg PO DAILY PRN 07/30/18 [History] Varenicline Tartrate [Chantix Starter Pack] 0.5 mg PO DIRECTED 07/30/18 [History] Acetaminophen [Tylenol Extra Strength] 500 mg PO Q6HR PRN #100 tablet 08/04/18 [Rx] Budesonide-Formot 160-4.5 Mcg [Symbicort 160-4.5 Mcg Inhaler] 2 puff INHALATION RT-BID #1 puff 08/04/18 [Rx] Follow up Appointment(s)/Referral(s): Gilberto Nickerson MD [STAFF PHYSICIAN] - 08/09/18 2:00 pm () Discharge Disposition: HOME SELF-CARE
--- NOTE | 2018-08-07 12:22 | CDI ---
Documentation Clarification Form Date: 08/07/18 From: Sheela Velazquez Phone: If you have a question regarding this query, please contact María Yates at [phone] betweem 8am and 5pm. Admit Date: 08/02/2018 9:27:00 AM Patient Name: Jonathan Laura Visit Number: [id number] Discharge Date: 08/04/2018 2:59:00 PM ATTENTION: The Clinical Documentation Specialists (CDI) and [facility] Coding Staff appreciate your assistance in clarifying documentation. Please respond to the clarification below the line at the bottom and electronically sign. The CDI & [facility] Coding staff will review the response and follow-up if needed. Please note: Queries are made part of the Legal Health Record. If you have any questions, please contact the author of this message via ITS. Dr. 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 Documentation states: Right upper lobe lung mass. Patient history/risk factors: Patient has a history of smoking quitting 1 month ago. The patient also has a history of COPD. Clinical Indicators: Abnormal CT of the chest showing multiple pulmonary nodules. Treatment: Wedge resection of the right upper lung lobe. In your professional opinion, do you agree with the pathology report specifying the lung mass as primary pulmonary adenocarcinoma? Yes No Other (please specify) Unable to determine yes MTDD
== END 2018-08-04 14:59 | disposition home or self-care (01) | DRG 164 ==
LOC: 2ORMAIN 09:27 → EDSTATUS 10:55 → 3SCARD 14:17
PROVIDERS: ADMIT Thoracic Surgery (Cardiothoracic Vascular Surgery); ATTEND Thoracic Surgery (Cardiothoracic Vascular Surgery)
PROC: 0BBC4ZZ Excision of Right Upper Lung Lobe, Percutaneous Endoscopic Approach (ICD-10-PCS; principal; 2018-08-02 10:55)
DX: C34.11 Malignant neoplasm of upper lobe, right bronchus or lung (principal); J93.82 Other air leak; J43.9 Emphysema, unspecified; Z87.891 Personal history of nicotine dependence; Z79.82 Long term (current) use of aspirin; Z79.899 Other long term (current) drug therapy; Z86.711 Personal history of pulmonary embolism; Z87.01 Personal history of pneumonia (recurrent); Z88.1 Allergy status to other antibiotic agents; Z88.0 Allergy status to penicillin; Z80.0 Family history of malignant neoplasm of digestive organs
CPT/HCPCS: 71045; 71046; 80048; 85025; 87070; 87102; 87116; 87205; 87206; 88307; 88313; 88341; 88342; 94640; 94760

== ENCOUNTER → 2018-10-04 | Outpatient (CLI) | payer OTHER ==
[2018-10-04 10:46] LABS: Basophils # (A) 0.1 k/uL (0-0.2); Basophils % (A) 1 %; Eosinophils # (A) 0.3 k/uL (0-0.7); Eosinophils % (A) 4 %; HCT 45.1 % (39.0-53.0); HGB 14.5 gm/dL (13.0-17.5); Lymphocytes # (A) 2.4 k/uL (1.0-4.8); Lymphocytes % (A) 34 %; MCH 28.9 pg (25.0-35.0); MCHC 32.1 g/dL (31.0-37.0); MCV 90.1 fL (80.0-100.0); Mean Platelet Volume 6.8; Monocytes # (A) 0.7 k/uL (0-1.0); Monocytes % (A) 10 %; Neutrophils # (A) 3.4 k/uL (1.3-7.7); Neutrophils % (A) 49 %; Platelet Count 292 k/uL (150-450); RBC 5.01 m/uL (4.30-5.90); RDW 14.5 % (11.5-15.5)
[2018-10-04 10:48] LABS: African American GFR (CKD) >90 (>60 ml/min/1.73 sqM); Anion Gap 5 mmol/L; Blood Urea Nitrogen 14 mg/dL (9-20); Carbon Dioxide 31 mmol/L (22-30); Chloride 106 mmol/L (98-107); Glucose 109 mg/dL (74-99); Magnesium 2.1 mg/dL (1.6-2.3); Potassium 5.2 mmol/L (3.5-5.1); Sodium 142 mmol/L (137-145)
[2018-10-04 10:50] LABS: Partial Thromboplastin Time 23.6 sec (22.0-30.0); Prothrombin Time 10.3 sec (9.0-12.0)
== END | disposition home or self-care (01) ==
LOC: LABPAT 09:54
PROVIDERS: ATTEND Thoracic Surgery (Cardiothoracic Vascular Surgery)
DX: Z01.812 Encounter for preprocedural laboratory examination (principal); C34.11 Malignant neoplasm of upper lobe, right bronchus or lung
CPT/HCPCS: 36415; 80051; 82565; 82947; 83735; 84520; 85025; 85610; 85730

== ENCOUNTER 2018-10-11 05:50 | Inpatient (IN) | payer OTHER ==
[2018-10-11] MEDS: LIDOCAINE 1% 20 ML VIAL (10MG/ML) FOR IV START INTRADERMA PRN ×2 (06:35→06:38)
[2018-10-11] MEDS: LACTATED RINGERS 1,000 ML IV SCH ×2 (06:35→06:38)
[2018-10-11] MEDS: ONDANSETRON 4 MG/2 ML VIAL IVP ONE ×2 (06:55→12:33)
[2018-10-11] MEDS ORDERED: MIDAZOLAM 2 MG/2 ML VIAL ONE (07:28)
[2018-10-11] MEDS ORDERED: GLYCOPYRROLATE 0.2 MG/ML 2 ML VIAL ONE (07:28)
[2018-10-11] MEDS ORDERED: NEOSTIGMINE 1 MG/ML 10 ML VIAL ONE (07:28)
[2018-10-11] MEDS ORDERED: LIDOCAINE 1% INJ 10MG/ML (20 ML MDV) ONE (07:28)
[2018-10-11] MEDS ORDERED: PROPOFOL 10 MG/ML 20 ML VIAL IV ONE (07:28)
[2018-10-11] MEDS ORDERED: ROCURONIUM BROMIDE 10 MG/ML 10 ML VIAL IV ONE (07:28)
[2018-10-11] MEDS ORDERED: PHENYLEPHRINE-0.9% NACL SYG 1 MG/10 ML SYRINGE ONE (07:28)
[2018-10-11] MEDS ORDERED: fentaNYL (PF) 50 MCG/ML 2 ML AMP ONE (07:28)
[2018-10-11] MEDS ORDERED: BUPIVACAINE (PF) 0.5% 30 ML VIAL SQ ONE ×2 (08:03)
--- NOTE | 2018-10-11 11:03 | P.OP ---
Date of Procedure: 10/11/18 Preoperative Diagnosis: Lung cancer right upper lobe Postoperative Diagnosis: Same Procedure(s) Performed: Right thoracoscopic robotically assisted upper lobectomy with mediastinal lymph node dissection Anesthesia: GIN Surgeon: Gilberto Nickerson Development Intern #1: Felipe Hamilton Estimated Blood Loss (ml): 100 IV fluids (ml): 900 Urine output (ml): 225 Pathology: other (Right upper lobe, lymph node stations R4, R8, R9, R 10, R 11, level 7) Condition: stable Disposition: PACU Indications for Procedure: 63-year-old male who is status post wedge resection of a irregular enlarging PET positive nodule in the right upper lobe. Pathology revealed an invasive adenocarcinoma with lipolytic component. The margin was sent to be involved with the hepatic component. There was no evidence of metastasis on metastatic workup. Lobectomy was recommended as appropriate curative therapy for invasive adenocarcinoma the right upper lobe. Operative Findings: Fissures were incomplete. Lymph nodes were anthracotic and soft. He old staple line was identified on the specimen for pathology. Description of Procedure: The patient was brought to the operating room, placed supine on the operating table, anesthetized and intubated with a double-lumen endotracheal tube. Tube was positioned with fiberoptic bronchoscopy and secured. Patient was turned in the left lateral decubitus position and appropriately positioned for robotic lobectomy. Right chest was sterilely prepped and draped. Incisions were made in the ninth interspace in the anterior and posterior axillary line. Video thoracoscope was placed and a free pleural space was identified. CO2 insufflation was begun. The more anterior and 8 mm port was placed through the posterior 12 mm port anterior to the most anterior port a second 12 mm port was placed and posterior to the 12 mm port and more superiorly a second 8 mm port was placed. Between the 2 most anterior port sent at the level of the diaphragm working port was placed. The robot was docked and appropriate instrumentation attached. There were some adhesions in the fissure and these were taken down. We then began mobilizing the inferior pulmonary ligament. Dissection was continued superiorly and posteriorly. Level VIII and 9 lymph nodes were resected. We continued up to the subcarinal region and the level VII lymph nodes were resected. Dissection was carried anterior to the bronchus and the upper lobe bronchus was identified. In the cris between the upper lobe bronchus and the bronchus intermedius a R 11 lymph node was dissected out. Posterior segmental branch was then identified from the pulmonary artery. It was encircled and ligated and divided with a robotic vascular stapler. Partial dissection was carried out around the upper lobe bronchus but we were not able to completely encircle it at this time. Attention was now directed anteriorly. The branches of the superior pulmonary vein draining draining the middle lobe were identified. Branches draining the upper lobe were encircled and ligated and divided with a robotic vascular stapler. Dissection was carried onto the pulmonary artery. The truncus anteriosus was encircled and ligated and divided with a robotic vascular stapler. R 10 lymph nodes were resected and the azygos vein was identified. A second small branch of the pulmonary artery leading toward the posterior segment was identified and ligated and divided with a robotic vascular stapler. This gave us good exposure of the upper lobe bronchus. It was encircled and ligated and divided with a robotic thick stapler. Remaining pleural attachments near the azygos vein were divided. The R 10 lymph nodes were now resected. Multiple firings of a robotic 45 mm blue stapler were used to divide the fissures. Lobectomy specimen was then placed in an Endo Catch bag. Robot was undocked and the working port incision was enlarged in the Endo Catch bag was brought through the working port incision. Specimen was labeled with a long suture at the previous resection margin. Good hemostasis was noted throughout. The chest was irrigated with warm water and minimal air leak was noted. Bronchial margin was free of any air leak. 28- [place] chest tube was placed through the most anterior incision and positioned posterior apically. It was secured with an 0 Ethibond suture. Rib blocks were performed at the level of the incisions of the incisions were closed with layers of Vicryl suture. Skin glue and dry sterile dressings were applied. The lung had been inflated under thoracoscopic visualization. Patient was turned supine, extubated and transported to recovery room in stable condition.
[2018-10-11] MEDS ORDERED: HYDROmorphone 1 MG/ML 1 ML SYRINGE IVP ONE ×2 (11:08→11:15)
--- NOTE | 2018-10-11 11:16 | XR ---
EXAMINATION TYPE: XR chest 1V portable DATE OF EXAM: 10/11/2018 CLINICAL HISTORY: Post right-sided lobectomy TECHNIQUE: Single AP portable upright view of the chest is obtained. COMPARISON: Chest x-ray from August 04, 2018. FINDINGS: There is small right apical pneumothorax estimated near 10% despite right-sided apical homa st tube. There is lateral right subcutaneous emphysema lower chest. No suspicious new focal airspace opacity. Slight right-sided volume loss after surgery. Cardiac silhouette size remains within normal limits. Osseous structures intact. IMPRESSION: Small right apical pneumothorax estimated at 10% despite right apical chest tube.
[2018-10-11] MEDS ORDERED: IPRATROPIUM-ALBUTEROL 3 ML NEB IH PRN (13:23)
[2018-10-11] MEDS ORDERED: ONDANSETRON 4 MG/2 ML VIAL IVP PRN (13:23)
[2018-10-11] MEDS ORDERED: DEXTROSE 5%-0.45% NACL 1,000 ML IV SCH (13:23)
[2018-10-11] MEDS ORDERED: ACETAMINOPHEN TAB 500 MG TAB PO PRN (13:23)
--- NOTE | 2018-10-11 14:49 | P.CNPUL ---
History of Present Illness Consult date: 10/11/18 Requesting physician: Gilberto Nickerson Reason for consult: abnormal CXR/CT, other Chief complaint: Right upper lobe nodule History of present illness: This is a 63-year-old white male patient with history of abnormal CT of the chest showing multiple pulmonary nodules, with 1 nodule in the right upper lobe showing recent increase in size. Patient had a PET scan showing increased activity in the right upper lobe nodule itself, with no evidence of metastasis, which was the largest nodule. Patient was referred to CT surgery and underwent right upper lobe wedge resection on 08/02/[address] 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 Lobectomy was recommended as acute therapy for invasive adenocarcinoma of the right upper lobe. And on 10/11/2018 patient underwent right thoracoscopic robotic-assisted upper lobectomy with mediastinal lymph node dissection. Patient is seen in the postoperative period on selective care unit, is resting in bed, he is having moderate amount of discomfort from his incisions on the right, right-sided chest tube is in place, with continuous air leak, and approximately 120 mL of sanguinous output in the chest tube. Follow-up chest x-ray postprocedure showed a small right apical pneumothorax estimated at 10%. he is on 2 L of oxygen and the pulse ox 100%, hemodynamically stable, he afebrile. Lung sounds are clear diminished at the right mid and lower lobe. Review of Systems All systems: negative Constitutional: Denies chills, Denies fever Eyes: denies blurred vision, denies pain Ears, nose, mouth and throat: Denies headache, Denies sore throat Cardiovascular: Denies chest pain, Denies shortness of breath Respiratory: Reports dyspnea, Denies cough Gastrointestinal: Denies abdominal pain, Denies diarrhea, Denies nausea, Denies vomiting Musculoskeletal: Denies myalgias Integumentary: Denies pruritus, Denies rash Neurological: Denies numbness, Denies weakness Psychiatric: Denies anxiety, Denies depression Endocrine: Denies fatigue, Denies weight change Past Medical History Past Medical History: COPD, Pneumonia, Pulmonary Embolus (PE) Additional Past Medical History / Comment(s): PE 2017, recent resp. infection- finished rx- symptoms cleared, History of Any Multi-Drug Resistant Organisms: None Reported Past Surgical History: Orthopedic Surgery Additional Past Surgical History / Comment(s): left shoulder- ELECTROCUTED HAD TO REMOVE BONE Past Anesthesia/Blood Transfusion Reactions: No Reported Reaction Past Psychological History: No Psychological Hx Reported Smoking Status: Former smoker Past Alcohol Use History: None Reported Additional Past Alcohol Use History / Comment(s): quit smoking 3 weeks ago, smoked since age 17, < 1PPD Past Drug Use History: None Reported - Past Family History Father Family Medical History: Cancer Additional Family Medical History / Comment(s): . Brother(s) Family Medical History: Cancer Medications and Allergies Home Medications Medication Instructions Recorded Confirmed Type Albuterol Sulfate [Proair Hfa] 1 - 2 puff INHALATION RT-Q4H PRN 07/30/18 10/11/18 History Aspirin [Adult Low Dose Aspirin EC] 81 mg PO DAILY 07/30/18 10/11/18 History Sildenafil Citrate [Viagra] 100 mg PO DAILY PRN 07/30/18 10/11/18 History Acetaminophen [Tylenol Extra 500 mg PO Q6HR PRN #100 tablet 08/04/18 10/11/18 Rx Strength] Cholecalciferol [Vitamin D3 (25 5,000 unit PO DAILY 10/11/18 10/11/18 History Mcg = 1000 Iu)] Allergies Allergy/AdvReac Type Severity Reaction Status Date / Time ciprofloxacin [From Cipro] Allergy Swelling/flushed Verified 10/11/18 13:44 face Penicillins Allergy Swelling/flushed Verified 10/11/18 13:44 face Physical Exam Vitals: Vital Signs Temp Pulse Resp BP Pulse Ox 10/11/18 12:30 79 15 125/83 93 L 10/11/18 11:54 76 15 125/83 100 10/11/18 11:39 73 16 127/83 100 10/11/18 11:24 73 16 125/78 100 10/11/18 11:09 74 16 132/91 100 10/11/18 10:54 96.9 F L 83 16 135/80 100 10/11/18 06:25 97.4 F L 67 18 132/78 98 Intake and Output 10/10/18 10/11/18 10/11/18 22:59 06:59 14:59 Intake Total 200 1050 Output Total 310 Balance 200 740 Intake: IV 200 1050 Output: Urine 210 Estimated Blood Loss 100 GENERAL EXAM: Alert, pleasant, 63-year-old white male, on 2 L of oxygen, and the mild to moderate amount of incisional pain from the right-sided chest incisions and right-sided pleural chest tube comfortable in no apparent distress. HEAD: Normocephalic/atraumatic. EYES: Normal reaction of pupils, equal size. Conjunctiva pink, sclera white. NOSE: Clear with pink turbinates. THROAT: No erythema or exudates. NECK: No masses, no JVD, no thyroid enlargement, no adenopathy. CHEST: No chest wall deformity. Symmetrical expansion. Right-sided pleural chest tube continuously leak and 120 mL of sanguinous output in the Pleur-evac LUNGS: Equal air entry with no crackles, wheeze, rhonchi or dullness. CVS: Regular rate and rhythm, normal S1 and S2, no gallops, no murmurs, no rubs ABDOMEN: Soft, nontender. No hepatosplenomegaly, normal bowel sounds, no guarding or rigidity. EXTREMITIES: No clubbing, no edema, no cyanosis, 2+ pulses and upper and lower extremities. MUSCULOSKELETAL: Muscle strength and tone normal. SPINE: No scoliosis or deformity SKIN: No rashes CENTRAL NERVOUS SYSTEM: Alert and oriented -3. No focal deficits, tone is normal in all 4 extremities. PSYCHIATRIC: Alert and oriented -3. Appropriate affect. Intact judgment and insight. Results - Diagnostic Findings Chest x-ray: report reviewed, image reviewed Assessment and Plan Plan: Assessment: #1. Invasive adenocarcinoma involving the right upper lobe, status post right upper lobe wedge resection, and the tumor involved the parenchymal resection margins, requiring right upper lobectomy with mediastinal lymph node dissection, postoperative day 0. PET scan did not show evidence of metastasis #2. History of COPD with a baseline FEV1 of 66% of predicted, FEV1/FVC is 56% and DLCO is in the range of 44%, stage II COPD #3. Tobacco dependence syndrome #4. Previous history of pulmonary embolism #5. Previous episode of pneumonia #6. Smaller pulmonary nodules that were noted to be ametabolic on the PET scan Plan: Encourage deep breathing and coughing, incentive spirometry to the bedside, stop her chest x-ray has been reviewed, small right apical pneumothorax, chest tube is with continuous air leak, hemodynamically stable, no fever or chills. Maintain pain control. Continue daily chest x-rays, we'll continue to follow with the CT surgery. Continue with nebulized treatments, antibiotics per CT surgery. Will await the results of the surgical biopsy. We'll follow I performed a history & physical examination of the patient and discussed their management with my nurse practitioner, Leti Gallagher. I reviewed the nurse practitioner's note and agree with the documented findings and plan of care. Lung sounds are positive for diminished . The findings and the impression was discussed with the patient. I attest to the documentation by the nurse practitioner. Time with Patient: Greater than 30
[2018-10-11] MEDS: IPRATROPIUM-ALBUTEROL 3 ML NEB IH SCH ×3 (16:23→19:51)
[2018-10-11] MEDS: traMADol 50 MG TAB PO SCH ×3 (17:10→23:44)
[2018-10-11] MEDS: KETOROLAC 30 MG/ML 1 ML VIAL IVP SCH ×3 (17:10→23:44)
[2018-10-11] MEDS: HEPARIN SODIUM,PORCINE 5,000 UNIT/ML 1 ML VIAL SQ SCH ×2 (17:21→23:44)
[2018-10-12] MEDS: PANTOPRAZOLE 40 MG TABLET PO SCH (06:36)
[2018-10-12] MEDS: KETOROLAC 30 MG/ML 1 ML VIAL IVP SCH ×4 (06:36→23:53)
[2018-10-12] MEDS ORDERED: MAGNESIUM HYDROXIDE 2,400 MG/10 ML CUP PO PRN (07:39)
[2018-10-12 07:40] LABS: Basophils % (A) 0 %; Eosinophils # (A) 0.1 k/uL (0-0.7); Eosinophils % (A) 1 %; HCT 39.4 % (39.0-53.0); HGB 12.8 gm/dL (13.0-17.5); Lymphocytes # (A) 1.5 k/uL (1.0-4.8); Lymphocytes % (A) 14 %; MCH 29.4 pg (25.0-35.0); MCHC 32.5 g/dL (31.0-37.0); MCV 90.5 fL (80.0-100.0); Mean Platelet Volume 6.2; Monocytes # (A) 0.9 k/uL (0-1.0); Monocytes % (A) 8 %; Neutrophils # (A) 8.3 k/uL (1.3-7.7); Neutrophils % (A) 75 %; Platelet Count 238 k/uL (150-450); RBC 4.36 m/uL (4.30-5.90); RDW 13.8 % (11.5-15.5)
--- NOTE | 2018-10-12 07:47 | P.PN ---
Subjective Progress Note Date: 10/12/18 Principal diagnosis: Lung cancer right upper lobe. 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 POD #1 right thoracoscopic robotically assisted upper lobectomy with mediastinal lymph node dissection The patient is currently sitting up in bed in no acute distress. States pain is controlled on current medication regimen. Denies shortness of breath. Actively using incentive spirometry. Right pleural chest tube remains to continuous wall suction with positive air leak present. No new complaints. Objective - Vital Signs Vital signs: Vital Signs Temp 97.9 F 10/12/18 04:00 Pulse 91 10/12/18 04:00 Resp 16 10/12/18 04:00 BP 104/55 10/12/18 04:00 Pulse Ox 98 10/12/18 04:00 Intake & Output 10/11/18 10/12/18 10/12/18 18:59 06:59 18:59 Intake Total 1050 494 Output Total 310 740 Balance 740 -246 Weight 80 kg Intake: IV 1050 10 Invasive Line 2 10 Intake, IV Titration 484 Amount Dextrose 5%-0.45% NaCl 1, 384 000 ml @ 45 mls/hr IV . [id number] [facility] Rx#:[id number] ceFAZolin 2 gm In Sodium 100 Chloride 0.9% 50 ml @ 100 mls/hr IVPB Q8HR [facility] Rx# :[id number] Output: Chest Tube Drainage 240 Chest Tube Right Lateral 240 Chest Urine 210 500 Estimated Blood Loss 100 Other: Voiding Method Indwelling Catheter - Constitutional General appearance: Present: cooperative, no acute distress - Respiratory Details: Lungs sounds diminished bilaterally with coarse breath sounds is in the right base. Respirations even, nonlabored. Currently on 2 L nasal cannula with oxygen saturation 98%. Able to achieve 1000 mL on his incentive spirometry. Right pleural chest tube to continuous wall suction, 240 mL serosanguineous drainage overnight, 450 mL since surgery, positive continuous air leak present. - Cardiovascular Details: S1, S2 present. Regular rate and rhythm, sinus rhythm on telemetry. Palpable peripheral pulses bilaterally. No edema present. No calf pain or tenderness noted. Antiembolism stockings, SCDs present. - Gastrointestinal Gastrointestinal Comment(s): Abdomen soft, nontender, nondistended. Active bowel sounds present 4 quadrants. Tolerating liquids - Genitourinary Genitourinary Comment(s): Lambert present draining clear, yellow urine. Output overnight 500 mL. - Integumentary Integumentary Comment(s): Skin is warm and dry with evidence of good perfusion. Right pleural chest tube site covered with dry intact dressing. - Neurologic Neurologic: Present: CNII-XII intact - Musculoskeletal Musculoskeletal: Present: strength equal bilaterally - Psychiatric Psychiatric: Present: A&O x's 3, appropriate affect, intact judgment & insight - Allied health notes Allied health notes reviewed: nursing - Imaging and Cardiology Chest x-ray: image reviewed Assessment and Plan Assessment: 1. Lung cancer right upper lobe, invasive moderate to poorly differentiated primary pulmonary adenocarcinoma with visceral pleural invasion, status post right thoracoscopic robotically assisted upper lobectomy with mediastinal lymph node dissection 2. Previous tobacco dependence with [id number] history and recent cessation 3. COPD with FEV1 66% of predicted 4. History of pulmonary embolism in 2017 with no oral anticoagulation 5. Family history of cancer Plan: 1. Continue right pleural chest tube to continuous wall suction. Will monitor for resolution of air leak. 2. Wean O2 as tolerated. Encourage incentive spirometry use 10 times every hour while awake. 3. Increase activity, ambulate in room. Nursing to add extension tubing to chest tube to allow for ambulation. 4. Will monitor daily labs and x-rays. 5. Discontinue Lambert catheter. Hep-Lock IV. 6. Pain control with current medication regimen. 7. GI/DVT prophylaxis. 8. Bronchodilators per pulmonology. 9. More recommendations to follow. Time with Patient: Greater than 30
[2018-10-12 07:51] LABS: African American GFR (CKD) >90 (>60 ml/min/1.73 sqM); Anion Gap 5 mmol/L; Blood Urea Nitrogen 17 mg/dL (9-20); Calcium 8.3 mg/dL (8.4-10.2); Carbon Dioxide 29 mmol/L (22-30); Chloride 101 mmol/L (98-107); Glucose 106 mg/dL (74-99); Potassium 4.2 mmol/L (3.5-5.1); Sodium 135 mmol/L (137-145)
[2018-10-12] MEDS: IPRATROPIUM-ALBUTEROL 3 ML NEB IH SCH ×4 (08:30→20:29)
--- NOTE | 2018-10-12 09:06 | XR ---
EXAMINATION TYPE: XR chest 1V DATE OF EXAM: 10/12/2018 COMPARISON: 10/11/2018 HISTORY: Post lobectomy TECHNIQUE: Single frontal view of the chest is obtained. FINDINGS: Postsurgical change and chest tube are stable. Small right apical pneumothorax approximate ly 10% stable. Subcutaneous emphysema noted. Bilateral subsegmental areas of consolidation. Chronic d eformity left clavicle and arthropathy of the shoulders. Right-sided patchy infiltrate stable. IMPRESSION: 1. Stable small right apical pneumothorax and patchy areas of atelectasis or
[2018-10-12] MEDS: traMADol 50 MG TAB PO SCH ×4 (09:08→21:25)
[2018-10-12] MEDS: CHOLECALCIFEROL 1,000 UNIT TAB PO SCH (09:08)
[2018-10-12] MEDS: ASPIRIN 81 MG PO SCH (09:09)
[2018-10-12] MEDS: HEPARIN SODIUM,PORCINE 5,000 UNIT/ML 1 ML VIAL SQ SCH ×3 (09:09→23:54)
--- NOTE | 2018-10-12 11:03 | P.PN ---
Subjective Progress Note Date: 10/12/18 Principal diagnosis: Primary pulmonary adenocarcinoma with visceral pleural invasion, status post right upper lobectomy This is a 63-year-old white male patient with history of abnormal CT of the chest showing multiple pulmonary nodules, with 1 nodule in the right upper lobe showing recent increase in size. Patient had a PET scan showing increased activity in the right upper lobe nodule itself, with no evidence of metastasis, which was the largest nodule. Patient was referred to CT surgery and underwent right upper lobe wedge resection on 08/02/[address] 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 Lobectomy was recommended as acute therapy for invasive adenocarcinoma of the right upper lobe. And on 10/11/2018 patient underwent right thoracoscopic robotic-assisted upper lobectomy with mediastinal lymph node dissection. Patient is seen in the postoperative period on selective care unit, is resting in bed, he is having moderate amount of discomfort from his incisions on the right, right-sided chest tube is in place, with continuous air leak, and approximately 120 mL of sanguinous output in the chest tube. Follow-up chest x-ray postprocedure showed a small right apical pneumothorax estimated at 10%. he is on 2 L of oxygen and the pulse ox 100%, hemodynamically stable, he afebrile. Lung sounds are clear diminished at the right mid and lower lobe. Patient is seen today 10/12/2018 in follow-up on the selective care unit. He is currently resting fairly comfortably in bed. He had just been up to the chair and got back in bed. He still has quite a bit of discomfort in the right chest. Chest tube remains in place with positive leak. He is maintaining good O2 saturations in the 90s on room air. He's been afebrile. Hemodynamically stable. White count 11.0. Hemoglobin 12.8. Creatinine 0.89. He remains on bronchodilators. He is working well with the incentive spirometer. Objective - Vital Signs Vital signs: Vital Signs Temp 97.7 F 10/12/18 08:00 Pulse 100 10/12/18 08:40 Resp 16 10/12/18 08:00 BP 110/60 10/12/18 08:00 Pulse Ox 94 L 10/12/18 08:00 Intake & Output 10/11/18 10/12/18 10/12/18 18:59 06:59 18:59 Intake Total 1050 494 180 Output Total 310 740 Balance 740 -246 180 Weight 80 kg Intake: IV 1050 10 Invasive Line 2 10 Intake, IV Titration 484 Amount Dextrose 5%-0.45% NaCl 1, 384 000 ml @ 45 mls/hr IV . [id number] [facility] Rx#:[id number] ceFAZolin 2 gm In Sodium 100 Chloride 0.9% 50 ml @ 100 mls/hr IVPB Q8HR [facility] Rx# :[id number] Oral 180 Output: Chest Tube Drainage 240 Chest Tube Right Lateral 240 Chest Urine 210 500 Estimated Blood Loss 100 Other: Voiding Method Indwelling Catheter - Exam GENERAL EXAM: Alert, pleasant, 63-year-old white male, on room air, and having mild to moderate amount of incisional pain from the right-sided chest incisions and right-sided pleural chest tube. HEAD: Normocephalic/atraumatic. EYES: Normal reaction of pupils, equal size. Conjunctiva pink, sclera white. NOSE: Clear with pink turbinates. THROAT: No erythema or exudates. NECK: No masses, no JVD, no thyroid enlargement, no adenopathy. CHEST: No chest wall deformity. Symmetrical expansion. Right-sided pleural chest tube continuously leak and sanguinous output in the Pleur-evac LUNGS: Equal air entry with no crackles, wheeze, rhonchi or dullness. CVS: Regular rate and rhythm, normal S1 and S2, no gallops, no murmurs, no rubs ABDOMEN: Soft, nontender. No hepatosplenomegaly, normal bowel sounds, no guarding or rigidity. EXTREMITIES: No clubbing, no edema, no cyanosis, 2+ pulses and upper and lower extremities. MUSCULOSKELETAL: Muscle strength and tone normal. SPINE: No scoliosis or deformity SKIN: No rashes CENTRAL NERVOUS SYSTEM: No focal deficits, tone is normal in all 4 extremities. PSYCHIATRIC: Alert and oriented -3. Appropriate affect. Intact judgment and insight. - Labs CBC & Chem 7: 10/12/18 07:28 10/12/18 07:28 Labs: Abnormal Lab Results - Last 24 Hours (Table) 10/12/18 10/12/18 Range/Units 07:28 07:28 WBC 11.0 H (3.8-10.6) k/uL Hgb 12.8 L (13.0-17.5) gm/dL Neutrophils # 8.3 H (1.3-7.7) k/uL Sodium 135 L (137-145) mmol/L Glucose 106 H (74-99) mg/dL Calcium 8.3 L (8.4-10.2) mg/dL Assessment and Plan Assessment: Assessment: #1. Invasive adenocarcinoma involving the right upper lobe, status post right upper lobe wedge resection, and the tumor involved the parenchymal resection margins, requiring right upper lobectomy with mediastinal lymph node dissection, postoperative day 1. PET scan did not show evidence of metastasis #2. History of COPD with a baseline FEV1 of 66% of predicted, FEV1/FVC is 56% and DLCO is in the range of 44%, stage II COPD #3. Tobacco dependence syndrome #4. Previous history of pulmonary embolism #5. Previous episode of pneumonia #6. Smaller pulmonary nodules that were noted to be ametabolic on the PET scan Plan: The patient was seen and evaluated by Dr. Chan. Chest x-ray and labs reviewed. He is currently stable from the pulmonary standpoint. Chest tube continues with a leak. Repeat a chest x-ray in the a.m. Encouraged increased use the incentive spirometer and cough and deep breathing exercises. Increase his acti vity as tolerated. We'll continue to follow and make further recommendations based on his clinical status. I, the cosigning physician, performed a history & physical examination of the patient. Lungs sounds with scattered rhonchi right lung. Maintaining good O2 saturations in the 90s on room air. I discussed the assessment and plan of care with my nurse practitioner, Joseline Kamara. I attest to the above note as dictated by her.
[2018-10-12] MEDS: SENNOSIDES-DOCUSATE SODIUM 1 EACH TAB PO SCH (21:27)
[2018-10-13] MEDS ORDERED: METOPROLOL TARTRATE 25 MG TAB PO SCH (02:27)
[2018-10-13 06:44] LABS: HCT 39.4 % (39.0-53.0); HGB 12.7 gm/dL (13.0-17.5); MCH 29.3 pg (25.0-35.0); MCHC 32.3 g/dL (31.0-37.0); MCV 90.8 fL (80.0-100.0); Platelet Count 214 k/uL (150-450); RBC 4.34 m/uL (4.30-5.90); RDW 15.2 % (11.5-15.5); WBC 14.1 k/uL (3.8-10.6)
[2018-10-13] MEDS: IPRATROPIUM-ALBUTEROL 3 ML NEB IH SCH ×4 (06:53→19:48)
[2018-10-13 06:58] LABS: African American GFR (CKD) >90 (>60 ml/min/1.73 sqM); Anion Gap 5 mmol/L; Blood Urea Nitrogen 18 mg/dL (9-20); Calcium 8.6 mg/dL (8.4-10.2); Carbon Dioxide 31 mmol/L (22-30); Chloride 99 mmol/L (98-107); Glucose 115 mg/dL (74-99); Potassium 4.5 mmol/L (3.5-5.1); Sodium 135 mmol/L (137-145)
[2018-10-13] MEDS: KETOROLAC 30 MG/ML 1 ML VIAL IVP SCH ×4 (07:00→23:10)
[2018-10-13] MEDS: PANTOPRAZOLE 40 MG TABLET PO SCH (07:00)
--- NOTE | 2018-10-13 07:03 | XR ---
EXAMINATION TYPE: XR chest 1V portable DATE OF EXAM: 10/13/2018 HISTORY: post right upper lobectomy. REFERENCE: Previous study dated 10/12/2018. FINDINGS: A right pleural drain is in place. There is worsening subcutaneous emphysema on the right. There continues to be a small right apical pneumothorax. There is some minimal right perihilar airspa ce disease. The left lung is clear. Heart size is normal. IMPRESSION: 1. PERSISTENT, SMALL RIGHT APICAL PNEUMOTHORAX. 2. WORSENING RIGHT-SIDED SUBCUTANEOUS EMPHYSEMA. 3. RIGHT PERIHILAR AIRSPACE DISEASE.
[2018-10-13 07:10] LABS: Magnesium 1.9 mg/dL (1.6-2.3)
--- NOTE | 2018-10-13 09:11 | P.PN ---
Subjective Progress Note Date: 10/13/18 Principal diagnosis: Lung cancer right upper lobe. 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 POD #2 right thoracoscopic robotically assisted upper lobectomy with mediastinal lymph node dissection The patient is currently sitting up in bed in no acute distress on the third floor cardiac stepdown unit. States pain is controlled on current pain medication regimen and denies any shortness of breath. Actively using incentive spirometry and is achieving 3600-9001 mL. Right pleural chest tube remains to continuous wall suction with intermittent air leak present. Chest x-ray this morning shows a persistent small right apical pneumothorax, and right-sided subcutaneous emphysema. The patient reports that he has been ambulating in the room with minimal assistance. Oxygen saturation are 97% on 2 L nasal cannula. Objective - Vital Signs Vital signs: Vital Signs Temp 98.0 F 10/13/18 08:00 Pulse 98 10/13/18 08:00 Resp 19 10/13/18 08:00 BP 102/65 10/13/18 08:00 Pulse Ox 97 10/13/18 08:00 Intake & Output 10/12/18 10/13/18 10/13/18 18:59 06:59 18:59 Intake Total 280 Output Total 150 350 300 Balance 130 -350 -300 Weight 72 kg Intake: Oral 280 Output: Chest Tube Drainage 150 Chest Tube Right Lateral 150 Chest Drainage 250 Right Chest 250 Urine 100 300 Other: Voiding Method Indwelling Catheter Toilet # Voids 1 1 - Constitutional General appearance: Present: cooperative, no acute distress - Respiratory Details: Lung sounds with few scattered rhonchi throughout, diminished to his right lower lobe. Respirations are symmetrical and nonlabored. Oxygen saturation are 97% on 2 L nasal cannula. Achieving 9666-0724 mL on entrance incentive spirometry. Right pleural chest tube remains in place to low continuous wall suction -20 cm H2O. Intermittent air leak is present. Draining thin serosanguineous drainage with 350 mL output in the last 24 hours. - Cardiovascular Details: Regular rhythm with tachycardic rate. S1 and S2 present, negative for S3, gallop or murmur. No edema present. Remote telemetry showing sinus tachycardia heart rate 107. Knee-high sequential compression devices in place was bilateral lower extremities. - Gastrointestinal Gastrointestinal Comment(s): Abdomen soft, nontender and nondistended. Active bowel sounds to all 4 abd ominal quadrants. No guarding or rigidity. No organomegaly. - Genitourinary Genitourinary Comment(s): Voiding clear sandro urine. - Integumentary Integumentary Comment(s): Skin is warm and dry. No clubbing or cyanosis is present. Right chest incision sites clean, dry and approximated. No drainage or redness is present. Dressings are clean, dry and intact. - Neurologic Neurologic: Present: CNII-XII intact - Musculoskeletal Musculoskeletal: Present: gait normal, strength equal bilaterally - Psychiatric Psychiatric: Present: A&O x's 3, appropriate affect, intact judgment & insight - Allied health notes Allied health notes reviewed: nursing - Labs CBC & Chem 7: 10/13/18 06:07 10/13/18 06:07 Labs: Abnormal Lab Results - Last 24 Hours (Table) 10/13/18 10/13/18 Range/Units 06:07 06:07 WBC 14.1 H (3.8-10.6) k/uL Hgb 12.7 L (13.0-17.5) gm/dL Sodium 135 L (137-145) mmol/L Carbon Dioxide 31 H (22-30) mmol/L Glucose 115 H (74-99) mg/dL - Imaging and Cardiology Chest x-ray: report reviewed, image reviewed Assessment and Plan Assessment: 1. Lung cancer right upper lobe, invasive moderate to poorly differentiated primary pulmonary adenocarcinoma with visceral pleural invasion, status post right thoracoscopic robotically assisted right upper lobectomy with mediastinal lymph node dissection 2. Previous tobacco dependence with [id number] history and recent cessation 3. COPD with FEV1 66% of predicted 4. History of pulmonary embolism in 2017 with no oral anticoagulation 5. Family history of cancer Plan: 1. Place right pleural chest tube to waterseal. Continue to monitor for resolution of air leak. 2. Wean O2 as tolerated. Encourage incentive spirometry use 10 times every hour while awake. 3. Increase activity, ambulate in the cardiac stepdown hallway. 4. Will monitor daily labs and chest x-rays. 5. Increase metoprolol tartrate to 50 mg by mouth twice a day. 6. Pain control with current medication regimen. 7. GI/DVT prophylaxis. 8. Bronchodilators per pulmonology. 9. Encourage and discussed the importance of continued smoking cessation. 10. More recommendations to follow based on patient's clinical course. Time with Patient: Greater than 30
[2018-10-13] MEDS: METOPROLOL TARTRATE 50 MG TAB PO SCH ×2 (09:48→23:10)
[2018-10-13] MEDS: HEPARIN SODIUM,PORCINE 5,000 UNIT/ML 1 ML VIAL SQ SCH ×3 (09:48→21:25)
[2018-10-13] MEDS: traMADol 50 MG TAB PO SCH ×4 (09:49→21:23)
[2018-10-13] MEDS: CHOLECALCIFEROL 1,000 UNIT TAB PO SCH (09:49)
[2018-10-13] MEDS: ASPIRIN 81 MG PO SCH (09:49)
--- NOTE | 2018-10-13 11:58 | P.PN ---
Subjective Progress Note Date: 10/13/18 Principal diagnosis: Primary pulmonary adenocarcinoma with visceral pleural invasion, status post right upper lobectomy This is a 63-year-old white male patient with history of abnormal CT of the chest showing multiple pulmonary nodules, with 1 nodule in the right upper lobe showing recent increase in size. Patient had a PET scan showing increased activity in the right upper lobe nodule itself, with no evidence of metastasis, which was the largest nodule. Patient was referred to CT surgery and underwent right upper lobe wedge resection on 08/02/[address] 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 Lobectomy was recommended as acute therapy for invasive adenocarcinoma of the right upper lobe. And on 10/11/2018 patient underwent right thoracoscopic robotic-assisted upper lobectomy with mediastinal lymph node dissection. Patient is seen in the postoperative period on selective care unit, is resting in bed, he is having moderate amount of discomfort from his incisions on the right, right-sided chest tube is in place, with continuous air leak, and approximately 120 mL of sanguinous output in the chest tube. Follow-up chest x-ray postprocedure showed a small right apical pneumothorax estimated at 10%. he is on 2 L of oxygen and the pulse ox 100%, hemodynamically stable, he afebrile. Lung sounds are clear diminished at the right mid and lower lobe. Patient is seen today 10/12/2018 in follow-up on the selective care unit. He is currently resting fairly comfortably in bed. He had just been up to the chair and got back in bed. He still has quite a bit of discomfort in the right chest. Chest tube remains in place with positive leak. He is maintaining good O2 saturations in the 90s on room air. He's been afebrile. Hemodynamically stable. White count 11.0. Hemoglobin 12.8. Creatinine 0.89. He remains on bronchodilators. He is working well with the incentive spirometer. Patient is seen today 10/13/2018 in follow-up on the selective care unit. He is awake and alert in no acute distress. More comfortable today as compared to yesterday. Pain is better controlled. Denies any worsening shortness of breath, cough or congestion. Maintaining O2 saturations in the 90s on 2 L/m per nasal cannula. She's afebrile. Hemodynamically stable. Chest tube remains in place to waterseal. Still with a small leak. X-ray reveals persistent small right apical pneumothorax. Worsening right-sided subcutaneous emphysema. Right perihilar airspace disease. White count 14.1. Hemoglobin 12.7. Creatinine 0.80. Objective - Vital Signs Vital signs: Vital Signs Temp 98.0 F 10/13/18 08:00 Pulse 90 10/13/18 11:16 Resp 19 10/13/18 08:00 BP 102/65 10/13/18 08:00 Pulse Ox 97 10/13/18 08:00 Intake & Output 10/12/18 10/13/18 10/13/18 18:59 06:59 18:59 Intake Total 280 472 Output Total 150 350 300 Balance 130 -350 172 Weight 72 kg Intake: Oral 280 472 Output: Chest Tube Drainage 150 Chest Tube Right Lateral 150 Chest Drainage 250 Right Chest 250 Urine 100 300 Other: Voiding Method Indwelling Catheter Toilet # Voids 1 1 - Exam GENERAL EXAM: Alert, pleasant, 63-year-old white male, on 2 L nasal cannula, and having mild amount of incisional pain from the right-sided chest incisions and right-sided pleural chest tube. HEAD: Normocephalic/atraumatic. EYES: Normal reaction of pupils, equal size. Conjunctiva pink, sclera white. NOSE: Clear with pink turbinates. THROAT: No erythema or exudates. NECK: No masses, no JVD, no thyroid enlargement, no adenopathy. CHEST: No chest wall deformity. Symmetrical expansion. Probable subcutaneous emphysema on the right. Right-sided pleural chest tube, mild leak, to waterseal leak and sanguinous output in the Pleur-evac LUNGS: Equal air entry with no crackles, wheeze, rhonchi or dullness. CVS: Regular rate and rhythm, normal S1 and S2, no gallops, no murmurs, no rubs ABDOMEN: Soft, nontender. No hepatosplenomegaly, normal bowel sounds, no guarding or rigidity. EXTREMITIES: No clubbing, no edema, no cyanosis, 2+ pulses and upper and lower extremities. MUSCULOSKELETAL: Muscle strength and tone normal. SPINE: No scoliosis or deformity SKIN: No rashes CENTRAL NERVOUS SYSTEM: No focal deficits, tone is normal in all 4 extremities. PSYCHIATRIC: Alert and oriented -3. Appropriate affect. Intact judgment and insight. - Labs CBC & Chem 7: 10/13/18 06:07 10/13/18 06:07 Labs: Abnormal Lab Results - Last 24 Hours (Table) 10/13/18 10/13/18 Range/Units 06:07 06:07 WBC 14.1 H (3.8-10.6) k/uL Hgb 12.7 L (13.0-17.5) gm/dL Sodium 135 L (137-145) mmol/L Carbon Dioxide 31 H (22-30) mmol/L Glucose 115 H (74-99) mg/dL Assessment and Plan Assessment: Assessment: #1. Invasive adenocarcinoma involving the right upper lobe, status post right upper lobe wedge resection, and the tumor involved the parenchymal resection margins, requiring right upper lobectomy with mediastinal lymph node dissection, postoperative day 2. PET scan did not show evidence of metastasis #2. History of COPD with a baseline FEV1 of 66% of predicted, FEV1/FVC is 56% and DLCO is in the range of 44%, stage II COPD #3. Tobacco dependence syndrome #4. Previous history of pulmonary embolism #5. Previous episode of pneumonia #6. Smaller pulmonary nodules that were noted to be ametabolic on the PET scan Plan: The patient was seen and evaluated by Dr. Chan. Chest x-ray and labs reviewed. Noted subcutaneous emphysema. Chest tube continues with a leak. Repeat a chest x-ray in the a.m. Encouraged increased use the incentive spirometer and cough and deep breathing exercises. Increase his activity as tolerated. We'll continue to follow and make further recommendations based on his clinical status. I, the cosigning physician, performed a history & physical examination of the patient. Lungs sounds with scattered rhonchi right lung. Maintaining good O2 saturations in the 90s on 2 L/m per nasal cannula. I discussed the assessment and plan of care with my nurse practitioner, Joseline Kamara. I attest to the above note as dictated by her.
[2018-10-13] MEDS: SENNOSIDES-DOCUSATE SODIUM 1 EACH TAB PO SCH (21:30)
[2018-10-14] MEDS: KETOROLAC 30 MG/ML 1 ML VIAL IVP SCH ×4 (06:11→23:20)
[2018-10-14] MEDS: PANTOPRAZOLE 40 MG TABLET PO SCH (06:13)
[2018-10-14 06:47] LABS: HCT 35.9 % (39.0-53.0); HGB 11.7 gm/dL (13.0-17.5); MCH 29.8 pg (25.0-35.0); MCHC 32.5 g/dL (31.0-37.0); MCV 91.8 fL (80.0-100.0); Mean Platelet Volume 7.8; Platelet Count 222 k/uL (150-450); RBC 3.91 m/uL (4.30-5.90); RDW 14.5 % (11.5-15.5); WBC 12.4 k/uL (3.8-10.6)
--- NOTE | 2018-10-14 07:06 | XR ---
EXAMINATION TYPE: XR chest 2V DATE OF EXAM: 10/14/2018 HISTORY: Postoperative right upper lobectomy. REFERENCE: Previous study dated 10/13/2018. FINDINGS: There continues to be a tiny right apical pneumothorax measuring less than 5% by volume. Th ere is continuing right-sided emphysematous emphysema which has worsened. A right pleural drain remai ns in place. There is some persistent right perihilar airspace disease. The left lung appears clear. I suspect sma ll, bilateral effusions. IMPRESSION: NO SIGNIFICANT INTERVAL CHANGE IN THE APPEARANCE OF THE CHEST.
[2018-10-14 07:08] LABS: African American GFR (CKD) >90 (>60 ml/min/1.73 sqM); Anion Gap 6 mmol/L; Blood Urea Nitrogen 23 mg/dL (9-20); Calcium 8.7 mg/dL (8.4-10.2); Carbon Dioxide 30 mmol/L (22-30); Chloride 100 mmol/L (98-107); Glucose 108 mg/dL (74-99); Sodium 136 mmol/L (137-145)
[2018-10-14] MEDS: IPRATROPIUM-ALBUTEROL 3 ML NEB IH SCH ×4 (07:48→20:42)
[2018-10-14] MEDS: HEPARIN SODIUM,PORCINE 5,000 UNIT/ML 1 ML VIAL SQ SCH ×3 (08:04→20:25)
[2018-10-14] MEDS: ASPIRIN 81 MG PO SCH (08:05)
[2018-10-14] MEDS: CHOLECALCIFEROL 1,000 UNIT TAB PO SCH (08:05)
[2018-10-14] MEDS: traMADol 50 MG TAB PO SCH ×4 (08:05→20:24)
[2018-10-14] MEDS: METOPROLOL TARTRATE 50 MG TAB PO SCH ×2 (08:05→20:25)
[2018-10-14] MEDS: guaiFENesin 600 MG TABLET.ER PO SCH ×2 (08:11→20:25)
--- NOTE | 2018-10-14 08:40 | P.PN ---
Subjective Progress Note Date: 10/14/18 Principal diagnosis: Lung cancer right upper lobe. Previous medical history of right upper lobe mass status post wedge resection on 08/02/2018 positive for invasive moderate to poorly differentiated primary pulmonary adenocarcinoma with visceral pleural invasion, previous tobacco dependence with [id number] history and recent cessation, COPD with FEV1 66% of predicted, pulmonary embolism in 2017 and no anticoagulation, and family history of cancer. POD #3 right thoracoscopic robotically assisted upper lobectomy with mediastinal lymph node dissection The patient is currently sitting up in bed in no acute distress on the third floor cardiac stepdown unit. States pain is controlled on current pain medication regimen and denies any shortness of breath. Oxygen saturations are 92% on room air. Achieving 1252 1500 mL on his incentive spirometry. His pathology results remain pending. Reports he has been ambulating in the 3 cardiac stepdown unit hallway with minimal assistance. Complaining of productive cough with thick sputum. He is also complaining of sounding nasally without any nasal congestion. His right pleural chest tube remains in place to water seal, no air leak is present. Remote telemetry showing normal sinus rhythm heart rate 83. Objective - Vital Signs Vital signs: Vital Signs Temp 98.3 F 10/14/18 04:00 Pulse 86 10/14/18 08:01 Resp 18 10/14/18 04:00 BP 102/68 10/14/18 04:00 Pulse Ox 96 10/14/18 04:00 Intake & Output 10/13/18 10/14/18 10/14/18 18:59 06:59 18:59 Intake Total 712 Output Total 550 75 Balance 162 -75 Weight 72 kg Intake: Oral 712 Output: Chest Tube Drainage 250 75 Chest Tube Right Lateral 250 75 Chest Urine 300 Other: Voiding Method Toilet # Voids 1 2 - Constitutional General appearance: Present: cooperative, no acute distress - Respiratory Details: Lung sounds with few scattered rhonchi throughout, diminished breath sounds to his right lower lobe. Respirations are symmetrical and nonlabored. Oxygen saturation are 92% on room air. Achieving 9806-1127 mL on his incentive spirometry. Right pleural chest tube remains in place to water seal. No air leak is present. Draining thin serosanguineous drainage was 75 mL output in the last 8 hours, 320 mL output in the last 24 hours. Subcutaneous emphysema present to his neck, right chest, back and right arm. - Cardiovascular Details: Regular rhythm and rate. S1 and S2 present, negative for S3, gallop or murmur. Remote telemetry showing normal sinus rhythm heart rate 83. No edema present. Knee-high sequential compression devices in place to his bilateral lower extremities. - Gastrointestinal Gastrointestinal Comment(s): abdomen is soft, nontender and nondistended. Active bowel sounds present in all 4 abdominal quadrants. No guarding or rigidity. No organomegaly. Tolerating oral intake. - Genitourinary Genitourinary Comment(s): Voiding clear sandro urine. - Integumentary Integumentary Comment(s): Skin is warm and dry. No clubbing or cyanosis is present. No rash or abnormal pigmentation is present. Right chest thoracoscopic incisions clean, dry and approximated. No drainage or redness is present. Dressings are clean, dry and intact. - Neurologic Neurologic: Present: CNII-XII intact - Musculoskeletal Musculoskeletal: Present: gait normal, strength equal bilaterally - Psychiatric Psychiatric: Present: A&O x's 3, appropriate affect, intact judgment & insight - Allied health notes Allied health notes reviewed: nursing - Labs CBC & Chem 7: 10/14/18 05:47 10/14/18 05:47 Labs: Abnormal Lab Results - Last 24 Hours (Table) 10/14/18 10/14/18 Range/Units 05:47 05:47 WBC 12.4 H (3.8-10.6) k/uL RBC 3.91 L (4.30-5.90) m/uL Hgb 11.7 L (13.0-17.5) gm/dL Hct 35.9 L (39.0-53.0) % Sodium 136 L (137-145) mmol/L BUN 23 H (9-20) mg/dL Glucose 108 H (74-99) mg/dL - Imaging and Cardiology Chest x-ray: report reviewed, image reviewed Assessment and Plan Assessment: 1. Lung cancer right upper lobe, invasive moderate to poorly differentiated primary pulmonary adenocarcinoma with visceral pleural invasion, status post right thoracoscopic robotically assisted right upper lobectomy with mediastinal lymph node dissection 2. Previous tobacco dependence with 10-xafr-[id number] history and recent cessation 3. COPD with FEV1 66% of predicted 4. History of pulmonary embolism in 2017 with no oral anticoagulation 5. Family history of cancer Plan: 1. Keep right pleural chest tube to waterseal. Anticipate that the chest tube will be removed tomorrow. 2. Wean O2 as tolerated. Encourage incentive spirometry use 10 times every hour while awake. 3. Increase activity, ambulate in the cardiac stepdown hallway. 4. Will monitor daily labs and chest x-rays. 5. Continue metoprolol tartrate to 50 mg by mouth twice a day. Remote telemetry showing normal sinus rhythm heart rate 83. 6. Pain control with current medication regimen. 7. GI/DVT prophylaxis. 8. Bronchodilators per pulmonology. 9. Encourage and discussed the importance of continued smoking cessation. 10. Start Mucinex 1200 mg by mouth every 12 hours. 11. Pathology results remain pending. 12. More recommendations to follow based on patient's clinical course. Time with Patient: Greater than 30
[2018-10-14] MEDS ORDERED: LACTULOSE 20 GM/30 ML CUP PO ONE (08:41)
--- NOTE | 2018-10-14 11:32 | PN ---
PROGRESS NOTE This is a 63-year-old gentleman who has invasive adenocarcinoma involving the right upper lobe. He initially had a right upper lobe wedge resection but the margins were not clean of tumor and the patient needed a completion lobectomy right upper lobe. He also had a mediastinal lymph node dissection. Pathology is currently pending. He is postop day #3. The patient also has a history of underlying COPD. His FEV1 percentage 66, which means he has moderate disease. He has a history of chronic tobacco use, not currently. Previous history of PE, pneumonia, and some small pulmonary nodules which were found to be a metabolic on PET scan. Currently, he is doing relatively well. He still has a leak from a chest tube on the right side. It is noted more when he coughs and when he breathes. In addition, he has significant subcutaneous emphysema in the right neck and right chest area. PHYSICAL EXAMINATION: GENERAL: Currently, he is resting comfortably. Denies any major complaints. VITAL SIGNS: Temperature 98, heart rate 86, respiratory rate 19, blood pressure 120/78, room-air saturation 97%. He clinically looks very well. HEENT examination grossly unremarkable. Mucous membranes are moist. No O2 noted. NECK: Supple. Full range of motion. No adenopathy or thyromegaly. Neck veins are flat. There is some subcutaneous emphysema in the neck and right chest area. CARDIOVASCULAR examination reveals regular rhythm and rate. Heart rate 87. S1, S2 normal. No murmur. LUNGS: Diminished breath sounds on the right side. No wheezes or rhonchi. No crackles. ABDOMEN: Soft. Bowel sounds are heard. No masses or tenderness. EXTREMITIES are intact. No cyanosis, clubbing, or edema. SKIN: Without rash. NEUROLOGIC examination is brief but nonfocal. LAB DATA: Reviewed. White count 12.4, hemoglobin 11.7, hematocrit 35.9, platelet count 322,000. Sodium 136, potassium 5, chloride 100, CO2 is 30, anion gap is 6, BUN and creatinine were 23 and 0.84. Microbiologic studies are negative. Chest x-rays reviewed. Medications are reviewed. ASSESSMENT: 1. Invasive adenocarcinoma involving the right upper lobe, status post right upper lobe wedge resection with margin showing evidence of malignancy, status post recent completion right upper lobectomy with mediastinal lymph node dissection, postop day #3. 2. History of chronic obstructive pulmonary disease, moderate in severity with an FEV1 that is 66% of predicted. 3. Previous history of tobacco dependence syndrome. 4. History of pulmonary embolism. 5. History of pneumonia. 6. A small pulmonary nodule on CT scan which had minimal to no uptake bypass on PET scan. PLAN: The patient is doing well. He still has a bit of a leak. Hopefully that seal over. The patient is feeling well. He is not having any chest pain or breathing issues. We will continue to follow. Prognosis is guarded. Pathology is pending. Additional recommendations and suggestions are forthcoming. MMODL / IJN: [id number] /
[2018-10-14] MEDS: SENNOSIDES-DOCUSATE SODIUM 1 EACH TAB PO SCH (20:20)
[2018-10-15] MEDS: KETOROLAC 30 MG/ML 1 ML VIAL IVP SCH (05:36)
[2018-10-15] MEDS: PANTOPRAZOLE 40 MG TABLET PO SCH (06:07)
[2018-10-15] MEDS: IPRATROPIUM-ALBUTEROL 3 ML NEB IH SCH ×2 (08:06→11:24)
--- NOTE | 2018-10-15 09:26 | P.DS ---
Providers Date of admission: 10/11/18 05:50 Expected date of discharge: 10/15/18 Attending physician: Gilberto Nickerson Consults: 10/11/18 13:23 Consult Physician Routine Consulting Provider: Marco Mcgrath Reason/Comments: known to you, post lobectomy Do you want consulting provider notified?: Yes Primary care physician: Lalito Morin Hospital Course: FINAL DIAGNOSIS: 1. Lung cancer right upper lobe, invasive moderate to poorly differentiated primary pulmonary adenocarcinoma with visceral pleural invasion, status post right thoracoscopic robotically assisted right upper lobectomy with mediastinal lymph node dissection 2. Previous tobacco dependence with [id number] history and recent cessation 3. COPD with FEV1 66% of predicted 4. History of pulmonary embolism in 2017 with no oral anticoagulation 5. Family history of cancer PRINCIPAL PROCEDURE: 1. Right thoracoscopic robotically assisted upper lobectomy with mediastinal lymph node dissection. HISTORY OF PRESENT ILLNESS: This is a 63-year-old gentleman who is followed by Dr. Lalito Morin on an outpatient basis. He is a past medical history si gnificant for a right upper lobe lung mass which has been enlarging in size, history of smoking which he quit about 3 months ago, COPD with a preoperative FEV1 of 66% of predicted value, history of pulmonary embolism in 2017 and a family history of cancer. He has a history of several small masses in the in his lung that him and followed for a couple years. Recently, the right upper lobe mass had increased in size to 1.1 x 0.8 cm in diameter. On 07/07/2018 the patient underwent a a PET scan which demonstrated advanced emphysematous changes with hypermetabolic uptake in the lateral inferior posterior right upper lobe lung nodule with a max SUV of 8.3 in no adenopathy or metastatic disease was identified at that time. Subsequently due to the metabolic uptake seen on the PET scan he was referred to Dr. Gilberto Nickerson for further evaluation and possible surgical recommendations. The patient's results of his computed tomography scan of the chest and PET scan were reviewed with the patient by Dr. Gilberto Nickerson and recommendations were to proceed with a right upper lobe wedge resection which he underwent on 08/02/2018. His pathology results from the right upper lobe wedge biopsy came back positive for invasive moderate to poorly differentiated primary pulmonary adenocarcinoma with visceral pleura invasion. The tumor also involved the parenchymal resection margin. Due to the patient's positive pathology results recommendations were made to undergo a right thoracoscopic robotically assisted upper lobectomy with mediastinal lymph node dissection. The risks and benefits of the surgery were discussed with the patient and he wished to proceed with an elective right upper lobectomy surgery. HOSPITAL COURSE: The patient was admitted to the hospital and after obtaining consent was taken to the preoperative area, prepared in the usual fashion and subsequently taken to the operating room where Dr. Gilberto Nickerson performed a right thoracoscopic robotically assisted upper lobectomy with mediastinal lymph node dissection. Upon completion of the surgery the patient was extubated and taken to the recovery room where he was recovered and monitored hemodynamically. He was subsequently transferred to [address] [place] [address] cardiac stepdown unit for further monitoring. On postoperative day #3 he exhibited no airleak to his chest tube in his chest tube was subsequently discontinued. His oxygen was titrated down, he was tolerating an oral diet, his pain was well controlled and his chest x-ray demonstrates a tiny right apical pneumothorax. He was ready to be discharged home on postoperative day #4. He has received written and verbal instructions regarding his medications, activity restrictions, signs and symptoms requiring physician notification and his follow-up appointments. COMPLICATIONS: There were no postoperative complications. CONSULTATIONS: 1. Dr. Mcgrath for pulmonary management. DISCHARGE INSTRUCTIONS: 1. No driving for 2 weeks, or until physician gives their ok. 2. No lifting, pushing, or pulling more than 10 pounds for 2 weeks. The physician will advise of any restriction changes. 3. Continue pain control per as needed orders. Alternate acetaminophen (Tylenol) and ibuprofen (Motrin/Advil) for pain. 4. Continue with incentive spirometry and splinting until otherwise directed by the physician. 5. Leave chest tube dressing for 48 hours. After that, remove all dressings and shower daily. 6. Routine incision care. No powders, lotions, ointments on incisions. 7. Please call surgeon/BEEF GRADER for temp greater than 101 F or purulent drainage from incisions. 8. Obtain a 2 view chest x-ray prior to follow-up visit with Dr. Gilberto Nickerson. 9. Pathology results remain pending and will be discussed with the patient when available upon his follow-up appointment with Dr. Gilberto Nickerson. Plan - Discharge Summary Discharge Rx Participant: No New Discharge Prescriptions: New Metoprolol Tartrate [Lopressor] 50 mg PO BID #60 tab guaiFENesin [Mucinex] 1,200 mg PO Q12HR #120 tablet.er Pantoprazole [Protonix] 40 mg PO AC-BRKFST #30 tablet. Continue Albuterol Sulfate [Proair Hfa] 1 - 2 puff INHALATION RT-Q4H PRN PRN Reason: Shortness Of Breath Aspirin [Adult Low Dose Aspirin EC] 81 mg PO DAILY Acetaminophen [Tylenol Extra Strength] 500 mg PO Q6HR PRN #100 tablet PRN Reason: Pain Control Cholecalciferol [Vitamin D3 (25 Mcg = 1000 Iu)] 5,000 unit PO DAILY Discontinued Sildenafil Citrate [Viagra] 100 mg PO DAILY PRN PRN Reason: erectile dysfuntion Discharge Medication List Albuterol Sulfate [Proair Hfa] 1 - 2 puff INHALATION RT-Q4H PRN 07/30/18 [History] Aspirin [Adult Low Dose Aspirin EC] 81 mg PO DAILY 07/30/18 [History] Acetaminophen [Tylenol Extra Strength] 500 mg PO Q6HR PRN #100 tablet 08/04/18 [Rx] Cholecalciferol [Vitamin D3 (25 Mcg = 1000 Iu)] 5,000 unit PO DAILY 10/11/18 [History] Metoprolol Tartrate [Lopressor] 50 mg PO BID #60 tab 10/15/18 [Rx] Pantoprazole [Protonix] 40 mg PO AC-BRKFST #30 tablet. 10/15/18 [Rx] guaiFENesin [Mucinex] 1,200 mg PO Q12HR #120 tablet.er 10/15/18 [Rx] Follow up Appointment(s)/Referral(s): Marco Mcgrath MD [STAFF PHYSICIAN] - 10/29/18 9:00 am Gilberto Nickerosn MD [STAFF PHYSICIAN] - 10/25/18 1:15 pm Lalito Morin MD [Primary Care Provider] - 10/22/18 11:00 am Ambulatory/Diagnostic Orders: XR chest 2V [RAD.AMB] Time Frame: 10/25/18, Facility: [facility], Location: [facility] Discharge Disposition: HOME SELF-CARE
[2018-10-15] MEDS: CHOLECALCIFEROL 1,000 UNIT TAB PO SCH (09:52)
[2018-10-15] MEDS: HEPARIN SODIUM,PORCINE 5,000 UNIT/ML 1 ML VIAL SQ SCH (09:52)
[2018-10-15] MEDS: ASPIRIN 81 MG PO SCH (09:52)
[2018-10-15] MEDS: guaiFENesin 600 MG TABLET.ER PO SCH (09:53)
[2018-10-15] MEDS: METOPROLOL TARTRATE 50 MG TAB PO SCH (09:53)
[2018-10-15 12:15] VITALS: BP 120/53; PULSE 83; RESP 16; TEMP 98.2
--- NOTE | 2018-10-15 13:01 | P.PN ---
Subjective Progress Note Date: 10/15/18 63-year-old male patient with known history of moderate to poorly differentiated pulmonary carcinoma who underwent a completion lobectomy. The patient underwent a right thoracoscopic robotic-assisted right upper lobe resection and mediastinal lymph node dissection. Mother the patient is a chronic smoker. He carries more than [id number] smoking history. His preop FEV1 was in order of 66%. He also has previous history of pulmonary embolism back in 2017 and he is been on no anticoagulation. For now, the patient is doing well. Is using incentive spirometer. The chest x-ray was repeated today and showed a tiny right apical pneumothorax. Otherwise no acute abnormalities of been noted. The patient has been ambulating. He is dropping his oxygen below 88% and he is going to need home oxygen and this was arranged for him. He has a home albuterol rescue inhaler in the form of pro-air rescue inhaler on an as-needed basis.. No chest pain. Surgical wound site is clean. He is not smoking and he has quit smoking approximately 3 months ago. He has excessive respiratory secretions. Objective - Vital Signs Vital signs: Vital Signs Temp 98.2 F 10/15/18 12:00 Pulse 83 10/15/18 12:00 Resp 16 10/15/18 12:00 BP 120/53 10/15/18 12:00 Pulse Ox 95 10/15/18 12:00 Intake & Output 10/14/18 10/15/18 10/15/18 18:59 06:59 18:59 Intake Total 720 240 Balance 720 240 Weight 70.2 kg Intake: Oral 720 240 Other: Voiding Method Toilet Toilet Toilet # Voids 2 2 2 - Exam GENERAL EXAM: Alert, pleasant, 63-year-old white male, on 2 L nasal cannula, HEAD: Normocephalic/atraumatic. EYES: Normal reaction of pupils, equal size. Conjunctiva pink, sclera white. NOSE: Clear with pink turbinates. THROAT: No erythema or exudates. NECK: No masses, no JVD, no thyroid enlargement, no adenopathy. CHEST: No chest wall deformity. Symmetrical expansion. Probable subcutaneous emphysema on the right. The chest tubes have been removed LUNGS: Equal air entry with no crackles, wheeze, rhonchi or dullness. CVS: Regular rate and rhythm, normal S1 and S2, no gallops, no murmurs, no rubs ABDOMEN: Soft, nontender. No hepatosplenomegaly, normal bowel sounds, no guarding or rigidity. EXTREMITIES: No clubbing, no edema, no cyanosis, 2+ pulses and upper and lower extremities. MUSCULOSKELETAL: Muscle strength and tone normal. SPINE: No scoliosis or deformity SKIN: No rashes CENTRAL NERVOUS SYSTEM: No focal deficits, tone is normal in all 4 extremities. PSYCHIATRIC: Alert and oriented -3. Appropriate affect. Intact judgment and insight. - Labs CBC & Chem 7: 10/14/18 05:47 10/14/18 05:47 Assessment and Plan Plan: #1. 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 PET scan did not show evidence of metastasis. On today's chest x-ray the patient has some status emphysema and a tiny right apical pneumothorax. Nevertheless the patient is doing well. He has some exertional hypoxemia and the patient will be discharged home with home O2. #2. History of COPD with a baseline FEV1 of 66% of predicted, FEV1/FVC is 56% and DLCO is in the range of 44%, stage II COPD #3. Tobacco dependence syndrome #4. Previous history of pulmonary embolism #5. Previous episode of pneumonia #6. Smaller pulmonary nodules that were noted to be ametabolic on the PET scan Plan Reviewed the chest x-ray. Arranged home oxygen for this patient. Use incentive spirometer. No smoking. Mucinex for cough and congestion. Advised this patient to purchase his own home oximeter. We will discharge him home today to be followed up in the office in a week's time for further advice regarding the results of the lobectomy and management of his COPD.
--- NOTE | 2018-10-15 17:01 | XR ---
EXAMINATION TYPE: XR chest 2V DATE OF EXAM: 10/15/2018 COMPARISON: Prior chest x-ray 10/14/2018 HISTORY: Postop right upper lobectomy, status post chest tube removal TECHNIQUE: Frontal and lateral views of the chest are obtained. FINDINGS: Right-sided chest tube has been removed. Small right apical pneumothorax is present. There is extensive subcutaneous emphysema. Pleural parenchymal changes are similar to prior exam, his volu me loss in the right hemithorax. Suspect a small right pleural effusion. Heart is small. Left lung is stable or possibly improvement in aeration. There are overlying cardiac leads. IMPRESSION: Interval chest tube removal, small apical pneumothorax on the right.
== END 2018-10-15 13:58 | disposition home or self-care (01) | DRG 164 ==
LOC: 2ORMAIN 05:50 → EDSTATUS 07:30 → 3SCARD 12:41
PROVIDERS: ADMIT Thoracic Surgery (Cardiothoracic Vascular Surgery); ATTEND Thoracic Surgery (Cardiothoracic Vascular Surgery)
DX: C34.11 Malignant neoplasm of upper lobe, right bronchus or lung (principal); J93.82 Other air leak; J93.83 Other pneumothorax; J43.9 Emphysema, unspecified; Z79.82 Long term (current) use of aspirin; Z80.9 Family history of malignant neoplasm, unspecified; Z86.711 Personal history of pulmonary embolism; Z87.01 Personal history of pneumonia (recurrent); Z88.1 Allergy status to other antibiotic agents; Z88.0 Allergy status to penicillin; Z87.891 Personal history of nicotine dependence
CPT/HCPCS: 71045; 71046; 80048; 83735; 85025; 85027; 86850; 86900; 86901; 88305; 88309; 94640; 94760

== ENCOUNTER → 2018-10-24 | Outpatient (CLI) | payer OTHER ==
--- NOTE | 2018-10-24 16:16 | XR ---
EXAMINATION TYPE: XR chest 2V DATE OF EXAM: 10/24/2018 COMPARISON: Prior chest x-ray 10/15/2018 HISTORY: Postop right upper lobectomy TECHNIQUE: Frontal and lateral views of the chest are obtained. FINDINGS: There is volume loss in the right hemithorax. Subcutaneous emphysema has largely resolved. No evident pneumothorax. Compensatory emphysema suspected in the right upper lobe. There is tenting of the right hemidiaphragm. Heart size is stable. No sizable effusion. Prominent lung volume on the l eft likely due to underlying COPD. IMPRESSION: No acute cardiopulmonary process. Postop changes.
== END | disposition home or self-care (01) ==
LOC: RADXRMAIN 15:25
PROVIDERS: ATTEND Thoracic Surgery (Cardiothoracic Vascular Surgery)
DX: Z90.2 Acquired absence of lung [part of] (principal)
CPT/HCPCS: 71046

== ENCOUNTER → 2019-10-10 | Outpatient (CLI) | payer MEDICARE, BC ==
[2019-10-10 15:48] LABS: African American GFR (CKD) >90 (>60 ml/min/1.73 sqM); Blood Urea Nitrogen 13 mg/dL (9-20); Non-African American GFR(CKD) 89 (>60 ml/min/1.73 sqM)
--- NOTE | 2019-10-10 18:20 | CT ---
EXAMINATION TYPE: CT chest w con DATE OF EXAM: 10/10/2019 COMPARISON: 07/07/2018 and 12/21/2017 HISTORY: 64-year-old male C34.90, Follow up for lung CA TECHNIQUE: Contiguous axial scanning of the chest after the administration of 100 mL of Isovue 300. Coronal/sagittal reconstructions performed. CT DLP: 484mGycm. Automatic exposure control utilized for a dose reduction. FINDINGS: Heart normal size without pericardial effusion. Aorta normal caliber with conventional arch vessel branching anatomy. No thoracic lymphadenopathy by CT size criteria. Advanced centrilobular emphysema. Postsurgical changes of right upper lobectomy. 7 mm area of nodularity anterior right suprahilar level, axial image 37 and 6 mm on the anterior righ t midlung, axial image 43 may be secondary to distorted parenchyma and should be reassessed at follow -up. 6 mm peripheral right lower lobe pulmonary nodule, axial image 53 and 1 cm subpleural pulmonary nodul e at the right base were present back to 12/21/2017 compatible with benign etiologies. 4 mm posterior left frontal pulmonary nodule, axial image 32 is unchanged. No consolidation or pleural effusion. Small hiatal hernia. Scattered subcentimeter hypodensities within the liver are unchanged, likely cysts. BONES: Moderate degenerative disc disease visualized cervical spine. No osseous destructive process. IMPRESSION: 1. COPD with advanced emphysema. 2. Interval right upper lobectomy. A couple areas of nodularity at the right suprahilar region and ri ght midlung measuring 7 mm and 6 mm could relate to postsurgical change. Follow-up recommended to exc lude small early pulmonary nodules. 3. A few additional scattered pulmonary nodules measuring up to 1 cm are stable back to 12/21/2017 sug gesting a benign etiology. 4. Small hiatal hernia.
== END | disposition home or self-care (01) ==
LOC: RADCTMAIN 15:13
PROVIDERS: ATTEND Internal Medicine
DX: J43.9 Emphysema, unspecified (principal); K44.9 Diaphragmatic hernia without obstruction or gangrene; C34.90 Malignant neoplasm of unspecified part of unspecified bronchus or lung; Z98.890 Other specified postprocedural states; Z88.0 Allergy status to penicillin
CPT/HCPCS: 82565; 84520; 71260; 36415; Q9967

== ENCOUNTER → 2021-02-11 | Outpatient (CLI) | payer MEDICARE, BC ==
[2021-02-11 14:13] LABS: African American GFR (CKD) >90 (>60 ml/min/1.73 sqM); Blood Urea Nitrogen 14 mg/dL (9-20); Non-African American GFR(CKD) 78 (>60 ml/min/1.73 sqM)
--- NOTE | 2021-02-11 15:34 | CT ---
EXAMINATION TYPE: CT chest w con DATE OF EXAM: 02/11/2021 COMPARISON: 10/10/2019 HISTORY: Abn lung quarles, history of lung CA CT DLP: 250.4 mGycm, Automated exposure control for dose reduction was used. CONTRAST: Performed injected with 100 mL of Isovue 300. TECHNIQUE: Axial images were obtained at 5 mm thick sections. Reconstructed images are reviewed on [employer] computer in the coronal plane. FINDINGS: Portion of the thyroid visualized is normal. There is a 0.8 cm nodule within the lateral right lung base, this was present previously. There is a 1.0 cm pleural-based nodule at the right costophrenic angle. Fairly extensive emphysematous changes are present bilaterally. Some scarring type appearance is pres ent on the right which appears stable. No enlarged mediastinal or hilar adenopathy is evident. Scattered small bilateral axillary lymph nod es are present. The ascending aorta diameter at the level of the main pulmonary artery is 2.8 cm. Th e main pulmonary artery diameter at the bifurcation is 2.[address] sections are obtained through the upper abdomen. Abdomen is essentially unremarkable. IMPRESSIONS: 1. Stable right lung base nodules. 2. COPD. 3. No suspicious interval growth or new nodules suggest recurrent or metastatic lung cancer
== END | disposition home or self-care (01) ==
LOC: RADCTMAIN 13:18
PROVIDERS: ATTEND Internal Medicine
DX: J44.9 Chronic obstructive pulmonary disease, unspecified (principal); R91.1 Solitary pulmonary nodule; R91.8 Other nonspecific abnormal finding of lung field
CPT/HCPCS: 82565; 84520; 71260; 36415; Q9967

== ENCOUNTER 2021-02-27 13:27 | Emergency (ER) | payer MEDICARE, BC ==
[2021-02-27 15:41] VITALS: TEMP 98.8
--- NOTE | 2021-02-27 18:05 | XR ---
INDICATION: Patient age:Male; 66 years old; Reason for study: difficulty breathing; PHH. COMPARISON: Multiple radiographs, with the most recent on July 02, 2020. TECHNIQUE: Frontal and lateral views of the chest. FINDINGS: Lungs/Pleura: New scattered reticular opacities are seen throughout the lungs. There is no evidence o f pleural effusion, focal consolidation, or pneumothorax. Pulmonary vascularity: Unremarkable. Heart/mediastinum: Cardiomediastinal silhouette is unremarkable. Musculoskeletal: No acute osseous pathology. IMPRESSION: Scattered reticular opacities which are new from prior suggesting atypical pneumonia.
[2021-02-27] MEDS ORDERED: SODIUM CHLORIDE 0.9% 500 ML 500 ML IV ONE (18:07)
[2021-02-27] MEDS ORDERED: methylPREDNISolone SOD SUCCI 125 MG/2 ML VIAL IV STA (18:08)
[2021-02-27] MEDS ORDERED: LEVOFLOXACIN 500MG-D5W PMX 500 MG in DEXTROSE/WATER 1 100ML.BAG IVPB STA (18:08)
[2021-02-27] MEDS ORDERED: ALBUTEROL NEBULIZED 2.5 MG/3 ML INHALATION STA (18:09)
[2021-02-27] MEDS ORDERED: IPRATROPIUM-ALBUTEROL 3 ML NEB INHALATION STA (18:09)
[2021-02-27] MEDS ORDERED: SODIUM CHLORIDE 0.9% 1,000 ML IV SCH (18:15)
[2021-02-27 18:34] LABS: Basophils # (A) 0.1 k/uL (0-0.2); Basophils % (A) 1 %; Eosinophils # (A) 0.1 k/uL (0-0.7); Eosinophils % (A) 1 %; HCT 45.9 % (39.0-53.0); HGB 15.6 gm/dL (13.0-17.5); Lymphocytes # (A) 1.9 k/uL (1.0-4.8); Lymphocytes % (A) 13 %; MCH 29.8 pg (25.0-35.0); MCV 87.7 fL (80.0-100.0); Mean Platelet Volume 7.6; Monocytes # (A) 1.2 k/uL (0-1.0); Monocytes % (A) 8 %; Neutrophils # (A) 11.4 k/uL (1.3-7.7); Neutrophils % (A) 76 %; Platelet Count 334 k/uL (150-450); RBC 5.24 m/uL (4.30-5.90); RDW 12.1 % (11.5-15.5)
[2021-02-27] MEDS ORDERED: AZITHROMYCIN 500 MG in SODIUM CHLORIDE 0.9% 250 ML IVPB STA (18:37)
[2021-02-27 18:43] LABS: ALT 20 U/L (4-49); AST 27 U/L (17-59); African American GFR (CKD) >90 (>60 ml/min/1.73 sqM); Albumin 4.1 g/dL (3.5-5.0); Alkaline Phosphatase 101 U/L (38-126); Anion Gap 14 mmol/L; Blood Urea Nitrogen 17 mg/dL (9-20); Calcium 9.4 mg/dL (8.4-10.2); Carbon Dioxide 21 mmol/L (22-30); Chloride 102 mmol/L (98-107); Glucose 115 mg/dL (74-99); Non-African American GFR(CKD) 82 (>60 ml/min/1.73 sqM); Sodium 137 mmol/L (137-145); Total Bilirubin 1.1 mg/dL (0.2-1.3); Total Protein 7.6 g/dL (6.3-8.2)
[2021-02-27 18:44] LABS: Potassium 4.2 mmol/L (3.5-5.1)
[2021-02-27 18:48] LABS: Partial Thromboplastin Time 22.4 sec (22.0-30.0)
--- NOTE | 2021-02-27 19:03 | ED ---
General Adult HPI - General Chief complaint: Shortness of Breath Stated complaint: SHREYAS & weakness Time Seen by Provider: 02/27/21 17:47 Source: patient, family, RN notes reviewed, old records reviewed Mode of arrival: ambulatory Limitations: no limitations - History of Present Illness Initial comments: 66-year-old male history of COPD, remote history of lung cancer presenting for evaluation of cough and dyspnea. Symptoms have been progressive over one month time but have been significantly worse over the past several days. No central chest pain. His does indicate that he had a fever at home. No lower extremity pain or swelling. - Related Data Home Medications Medication Instructions Recorded Confirmed Aspirin [Adult Low Dose Aspirin EC] 81 mg PO DAILY 07/30/18 02/27/21 Cholecalciferol [Vitamin D3 (25 5,000 unit PO DAILY 10/11/18 02/27/21 Mcg = 1000 Iu)] Albuterol Sulfate [Ventolin HFA] 2 puff INHALATION RT-Q6H PRN 02/27/21 02/27/21 Omeprazole 20 mg PO DAILY 02/27/21 02/27/21 guaiFENesin [Mucinex] 600 mg PO Q12HR PRN 02/27/21 02/27/21 Previous Rx's Medication Instructions Recorded Azithromycin [Zithromax] 500 mg PO DAILY 5 Days #5 tab 02/27/21 predniSONE 50 mg PO DAILY #5 tab 02/27/21 Allergies Allergy/AdvReac Type Severity Reaction Status Date / Time ciprofloxacin [From Cipro] Allergy Swelling/flushed Verified 02/27/21 18:15 face Penicillins Allergy Swelling/flushed Verified 02/27/21 18:15 face Review of Systems ROS Statement: Those systems with pertinent positive or pertinent negative responses have been documented in the HPI. ROS Other: All systems not noted in ROS Statement are negative. Past Medical History Past Medical History: COPD, Pneumonia, Pulmonary Embolus (PE) Additional Past Medical History / Comment(s): PE 2017, recent resp. infection- finished rx- symptoms cleared, History of Any Multi-Drug Resistant Organisms: None Reported Past Surgical History: Orthopedic Surgery Additional Past Surgical History / Comment(s): left shoulder- ELECTROCUTED HAD TO REMOVE BONE Past Anesthesia/Blood Transfusion Reactions: No Reported Reaction Past Psychological History: No Psychological Hx Reported Smoking Status: Former smoker Past Alcohol Use History: None Reported Past Drug Use History: None Reported - Past Family History Father Family Medical History: Cancer Additional Family Medical History / Comment(s): . Brother(s) Family Medical History: Cancer General Exam Limitations: no limitations General appearance: alert, in no apparent distress Head exam: Present: atraumatic, normocephalic Eye exam: Present: normal appearance, PERRL ENT exam: Present: normal exam Neck exam: Present: normal inspection. Absent: tenderness, meningismus Respiratory exam: Present: wheezes, rhonchi. Absent: respiratory distress Cardiovascular Exam: Present: regular rate, normal rhythm GI/Abdominal exam: Present: soft. Absent: distended, tenderness, guarding Extremities exam: Present: normal inspection, normal capillary refill. Absent: pedal edema Neurological exam: Present: alert, oriented X3, CN II-XII intact. Absent: motor sensory deficit Psychiatric exam: Present: normal affect, normal mood Skin exam: Present: warm, dry, intact. Absent: cyanosis, diaphoretic Course Vital Signs 02/27/21 02/27/21 02/27/21 15:38 19:20 19:29 Temperature 98.8 F Pulse Rate 107 H 93 91 Respiratory 26 H 18 Rate Blood Pressure 124/81 131/83 O2 Sat by Pulse 97 98 Oximetry 02/27/21 19:49 Temperature Pulse Rate 90 Respiratory Rate Blood Pressure O2 Sat by Pulse Oximetry EKG Findings - EKG Comments: EKG Findings:: EKG: Normal sinus rhythm, rightward axis, no ST segment elevation, rate of 96, OH interval 1:30, QRS duration 76, QTC 447 Medical Decision Making - Medical Decision Making 66-year-old male history COPD presenting with cough and dyspnea. Cough is productive at times but mostly dry. He does not have a measured temperature in the emergency department. He has a leukocytosis of 15. Otherwise normal laboratory testing. His chest x-ray shows a minimal bilateral pneumonia. After breathing treatments, IV steroids and IV antibiotics he is feeling better. His oxygenation is normal. I did offer either admission versus discharge home with strict return parameters and the patient is willing to try oral antibiotics and oral steroids. He will make an appointment with his child protective services specialist Dr. Mcgrath. He will return with any worsening or changing symptoms. - Lab Data Result diagrams: 02/27/21 18:10 02/27/21 18:10 Lab Results 02/27/21 02/27/21 02/27/21 Range/Units 15:46 18:10 18:10 WBC 15.0 H (3.8-10.6) k/uL RBC 5.24 (4.30-5.90) m/uL Hgb 15.6 (13.0-17.5) gm/dL Hct 45.9 (39.0-53.0) % MCV 87.7 (80.0-100.0) fL MCH 29.8 (25.0-35.0) pg MCHC 34.0 (31.0-37.0) g/dL RDW 12.1 (11.5-15.5) % Plt Count 334 (150-450) k/uL MPV 7.6 Neutrophils % 76 % Lymphocytes % 13 % Monocytes % 8 % Eosinophils % 1 % Basophils % 1 % Neutrophils # 11.4 H (1.3-7.7) k/uL Lymphocytes # 1.9 (1.0-4.8) k/uL Monocytes # 1.2 H (0-1.0) k/uL Eosinophils # 0.1 (0-0.7) k/uL Basophils # 0.1 (0-0.2) k/uL PT 11.0 (9.0-12.0) sec INR 1.0 (<1.2) APTT 22.4 (22.0-30.0) sec Sodium (137-145) mmol/L Potassium (3.5-5.1) mmol/L Chloride (98-107) mmol/L Carbon Dioxide (22-30) mmol/L Anion Gap mmol/L BUN (9-20) mg/dL Creatinine (0.66-1.25) mg/dL Est GFR (CKD-EPI)AfAm (>60 ml/min/1.73 sqM) Est GFR (CKD-EPI)NonAf (>60 ml/min/1.73 sqM) Glucose (74-99) mg/dL Plasma Lactic Acid Ceasar (0.7-2.0) mmol/L Calcium (8.4-10.2) mg/dL Total Bilirubin (0.2-1.3) mg/dL AST (17-59) U/L ALT (4-49) U/L Alkaline Phosphatase (38-126) U/L Troponin I (0.000-0.034) ng/mL NT-Pro-B Natriuret Pep pg/mL Total Protein (6.3-8.2) g/dL Albumin (3.5-5.0) g/dL Coronavirus (PCR) Not Detected (Not Detectd) 02/27/21 02/27/21 02/27/21 Range/Units 18:10 18:10 18:10 WBC (3.8-10.6) k/uL RBC (4.30-5.90) m/uL Hgb (13.0-17.5) gm/dL Hct (39.0-53.0) % MCV (80.0-100.0) fL MCH (25.0-35.0) pg MCHC (31.0-37.0) g/dL RDW (11.5-15.5) % Plt Count (150-450) k/uL MPV Neutrophils % % Lymphocytes % % Monocytes % % Eosinophils % % Basophils % % Neutrophils # (1.3-7.7) k/uL Lymphocytes # (1.0-4.8) k/uL Monocytes # (0-1.0) k/uL Eosinophils # (0-0.7) k/uL Basophils # (0-0.2) k/uL PT (9.0-12.0) sec INR (<1.2) APTT (22.0-30.0) sec Sodium 137 (137-145) mmol/L Potassium 4.2 (3.5-5.1) mmol/L Chloride 102 (98-107) mmol/L Carbon Dioxide 21 L (22-30) mmol/L Anion Gap 14 mmol/L BUN 17 (9-20) mg/dL Creatinine 0.96 (0.66-1.25) mg/dL Est GFR (CKD-EPI)AfAm >90 (>60 ml/min/1.73 sqM) Est GFR (CKD-EPI)NonAf 82 (>60 ml/min/1.73 sqM) Glucose 115 H (74-99) mg/dL Plasma Lactic Acid Ceasar 1.6 (0.7-2.0) mmol/L Calcium 9.4 (8.4-10.2) mg/dL Total Bilirubin 1.1 (0.2-1.3) mg/dL AST 27 (17-59) U/L ALT 20 (4-49) U/L Alkaline Phosphatase 101 (38-126) U/L Troponin I <0.012 (0.000-0.034) ng/mL NT-Pro-B Natriuret Pep pg/mL Total Protein 7.6 (6.3-8.2) g/dL Albumin 4.1 (3.5-5.0) g/dL Coronavirus (PCR) (Not Detectd) 02/27/21 Range/Units 18:10 WBC (3.8-10.6) k/uL RBC (4.30-5.90) m/uL Hgb (13.0-17.5) gm/dL Hct (39.0-53.0) % MCV (80.0-100.0) fL MCH (25.0-35.0) pg MCHC (31.0-37.0) g/dL RDW (11.5-15.5) % Plt Count (150-450) k/uL MPV Neutrophils % % Lymphocytes % % Monocytes % % Eosinophils % % Basophils % % Neutrophils # (1.3-7.7) k/uL Lymphocytes # (1.0-4.8) k/uL Monocytes # (0-1.0) k/uL Eosinophils # (0-0.7) k/uL Basophils # (0-0.2) k/uL PT (9.0-12.0) sec INR (<1.2) APTT (22.0-30.0) sec Sodium (137-145) mmol/L Potassium (3.5-5.1) mmol/L Chloride (98-107) mmol/L Carbon Dioxide (22-30) mmol/L Anion Gap mmol/L BUN (9-20) mg/dL Creatinine (0.66-1.25) mg/dL Est GFR (CKD-EPI)AfAm (>60 ml/min/1.73 sqM) Est GFR (CKD-EPI)NonAf (>60 ml/min/1.73 sqM) Glucose (74-99) mg/dL Plasma Lactic Acid Ceasar (0.7-2.0) mmol/L Calcium (8.4-10.2) mg/dL Total Bilirubin (0.2-1.3) mg/dL AST (17-59) U/L ALT (4-49) U/L Alkaline Phosphatase (38-126) U/L Troponin I (0.000-0.034) ng/mL NT-Pro-B Natriuret Pep 114 pg/mL Total Protein (6.3-8.2) g/dL Albumin (3.5-5.0) g/dL Coronavirus (PCR) (Not Detectd) Disposition Clinical Impression: COPD (chronic obstructive pulmonary disease), Community acquired pneumonia Disposition: HOME SELF-CARE Condition: Fair Instructions (If sedation given, give patient instructions): COPD (Chronic Obstructive Pulmonary Disease) (ED), Pneumonia (ED) Prescriptions: predniSONE 50 mg PO DAILY #5 tab Azithromycin [Zithromax] 500 mg PO DAILY 5 Days #5 tab Is patient prescribed a controlled substance at d/c from ED?: No Referrals: Lalito Morin MD [Primary Care Provider] - 1-2 days Marco Mcgrath MD [STAFF PHYSICIAN] - 1-2 days Time of Disposition: 20:00
[2021-02-27 19:22] VITALS: RESP 18
[2021-02-27 20:34] VITALS: BP 101/70; PULSE 102
== END 2021-02-27 20:34 | disposition home or self-care (01) ==
LOC: EC 13:27
DX: J44.9 Chronic obstructive pulmonary disease, unspecified (principal); J18.9 Pneumonia, unspecified organism; Z20.822 Contact with and (suspected) exposure to COVID-19; Z88.1 Allergy status to other antibiotic agents; Z88.0 Allergy status to penicillin; Z87.891 Personal history of nicotine dependence
CPT/HCPCS: 99285; 36415; 94640; 93005; 83880; 80053; 83605; 84484; 85025; 85610; 85730; 87040; 87635; 71046; 96374; 96375; 96361; J2930; J0456

== ENCOUNTER → 2022-02-02 | Outpatient (CLI) | payer MEDICARE, BC ==
[2022-02-02 17:11] LABS: African American GFR (CKD) >90 (>60 ml/min/1.73 sqM); Blood Urea Nitrogen 14 mg/dL (9-20); Non-African American GFR(CKD) 89 (>60 ml/min/1.73 sqM)
--- NOTE | 2022-02-03 07:18 | CT ---
EXAMINATION TYPE: CT chest w con CT DLP: 208.20 mGycm, Automated exposure control for dose reduction was used. DATE OF EXAM: 02/02/2022 5:46 PM COMPARISON: CT chest most recently 02/11/2021 CLINICAL INDICATION:Male, 66 years old with history of R91.8OTHER NONSPECIFIC ABNORMAL FINDING OF GRACY G FI, f.u lung ca TECHNIQUE: Multiple axial images were obtained through the chest. Sagittal and coronal reformats were created for review. Contrast used:90 mL of Isovue 300 with IV Contrast Oral contrast used: none. FINDINGS: LUNGS/ PLEURA: Moderate to severe emphysema changes are seen most pronounced in the lung apices right greater than left. * Right upper lobe 4 mm pulmonary nodule unchanged from 2016 (series 4 image 20). * Right lower lobe pulmonary nodule along the pleura unchanged from 02/11/2021 measuring 9 mm (serie s 4 image 53) * Right lower lobe anteriorly stable appearing 7 mm pulmonary nodule (series 4 image 45) No evidence of focal consolidation, pneumothorax or pleural effusion. AIRWAY: Secretions are seen within the trachea. HEART: Size within normal limits. Mild coronary artery atherosclerosis. MEDIASTINUM: No gross evidence of adenopathy. Small hiatal hernia is present. VASCULATURE: No aortic aneurysm. MUSCULOSKELETAL: No acute osseous abnormalities , mild atherosclerosis of the arterial vasculature. SOFT TISSUES/LYMPH NODES: Unremarkable. LOWER NECK: No significant findings. UPPER ABDOMEN: Scattered low density hepatic cysts are present. IMPRESSION: 1. Stable exam with postsurgical changes to the right lung. No new or enlarging pulmonary nodules. 2. Moderate to severe emphysema changes.
== END | disposition home or self-care (01) ==
LOC: RADCTMAIN 15:56
PROVIDERS: ATTEND Internal Medicine
DX: J43.9 Emphysema, unspecified (principal); R91.8 Other nonspecific abnormal finding of lung field
CPT/HCPCS: 82565; 84520; 71260; 36415; Q9967

== ENCOUNTER 2023-03-14 08:17 | Day surgery (SDC) | payer MEDICARE, BC ==
[2023-03-08 16:17] VITALS: BMI 20.9
[~2023-03-14 08:17] MED LIST changes: -CLINDAMYCIN 900 MG in DEXTROSE 5% IN WATER 50 ML IVPB ONE; -DEXAMETHASONE SOD PHOSPHATE 10 MG/ML 1 ML VIAL IV ONE; +LIDOCAINE 1% (10MG/ML) FOR IV START INTRADERMA PRN; -LIDOCAINE 1% 20 ML VIAL (10MG/ML) FOR IV START INTRADERMA PRN; -MIDAZOLAM (PF) 2 MG/2 ML VIAL IV PRN; -ONDANSETRON 4 MG/2 ML VIAL IVP ONE; -SCOPOLAMINE 1.5MG/72HR PATCH TRANSDERM ONE
[2023-03-14 09:11] VITALS: RESP 16; TEMP 98.2
[2023-03-14] MEDS ORDERED: PROPOFOL 10 MG/ML 20 ML VIAL IV ONE (09:27)
--- NOTE | 2023-03-14 09:48 | P.PCN ---
Date of Procedure: 03/14/23 Procedure(s) Performed: BRIEF HISTORY: Patient is a 68-year-old pleasant white male scheduled for an elective colonoscopy as a part of screening for colon cancer and family history of colon cancer. His brother was diagnosed with colon cancer at age 57. PROCEDURE PERFORMED: Colonoscopy snare polypectomy. PREOPERATIVE DIAGNOSIS: In for colon cancer and family history of colon cancer. IV sedation per Anesthesia. PROCEDURE: After informed consent was obtained, the patient, was brought into the endoscopy unit. IV sedation was administered by Anesthesia under continuous monitoring. Digital rectal examination was normal. Initially the Olympus CF-160 flexible video colonoscope was then inserted in the rectum, gradually advanced into the cecum without any difficulty. Careful examination was performed as the scope was gradually being withdrawn. Ileocecal valve and the appendiceal orifice were visualized and appeared normal. Prep was excellent. Mucosa of the cecum, normal. In the ascending colon there was a 5 limited and 1.5 cm broad-based polyp removed by snare polypectomy. In the transverse colon there was a 5 mm sessile polyp removed by snare polypectomy. In the sigmoid: There was a 1 cm and 1.2 cm polyp removed by snare polypectomy. Rest of the with snare polypectomy descending colon, sigmoid colon, and rectum appeared normal. Retroflexion was performed in the rectum and no lesions were seen. The patient tolerated the procedure well. IMPRESSION: 5 mm and 1.5 cm broad-based ascending colon polyp status post polypectomy 5 mm transverse colon polyp status post polypectomy 1 cm and 1.2 cm sigmoid: Polyp status post polypectomy. RECOMMENDATIONS: Findings of this examination were discussed with the patient as well as his family. He was advised to follow with the biopsy results and recommend repeat repeat colonoscopy in 3 years.
[2023-03-14 10:24] VITALS: BP 108/72; PULSE 85
== END 2023-03-14 10:26 | disposition home or self-care (01) ==
LOC: ORWHC2ENDO 08:17
PROVIDERS: ATTEND Internal Medicine Gastroenterology
DX: Z12.11 Encounter for screening for malignant neoplasm of colon (principal); D12.2 Benign neoplasm of ascending colon; D12.5 Benign neoplasm of sigmoid colon; J44.9 Chronic obstructive pulmonary disease, unspecified; E78.5 Hyperlipidemia, unspecified; Z87.891 Personal history of nicotine dependence; Z86.711 Personal history of pulmonary embolism; Z80.0 Family history of malignant neoplasm of digestive organs; Z88.0 Allergy status to penicillin; Z88.1 Allergy status to other antibiotic agents; Z85.118 Personal history of other malignant neoplasm of bronchus and lung; Z79.82 Long term (current) use of aspirin; Z79.899 Other long term (current) drug therapy
CPT/HCPCS: 88305; 45385; J2704

== ENCOUNTER → 2024-09-06 | Outpatient (CLI) | payer MEDICARE, BC ==
[2024-09-06 10:51] LABS: African American GFR (CKD) >90 (>60 ml/min/1.73 sqM); Blood Urea Nitrogen 15 mg/dL (9-20); Non-African American GFR(CKD) 80 (>60 ml/min/1.73 sqM)
--- NOTE | 2024-09-06 11:52 | CT ---
EXAMINATION TYPE: CT chest w con DATE OF EXAM: 09/06/2024 11:35 AM COMPARISON: 02/02/2022. CLINICAL INDICATION: Male, 69 years old with history of C34.90 MALIGNANT NEOPLASM OF UNSP PART OF UNS P BRO; PHH, lung ca TECHNIQUE: Multiple axial images were obtained through the chest. Sagittal and coronal reformats were created for review. MIP was performed on a separate workstation. Contrast used:100 mL of Isovue 300 with IV Contrast (None if empty) Oral contrast used: (None if empty) CT DLP: 214.9 mGycm, Automated exposure control for dose reduction was used. FINDINGS: LUNGS/ PLEURA: Moderate to severe emphysema changes are seen most pronounced in the lung apices right greater than left. * Left upper lobe 4 mm pulmonary nodule unchanged from 2016 (series 3 image 21). * Right lower lobe pulmonary nodule along the pleura unchanged from 02/11/2021 measuring 8 mm (serie s 3 image 48) * Right lower lobe anteriorly stable appearing 7 mm pulmonary nodule (series 3 image 56) No evidence of focal consolidation, pneumothorax or pleural effusion. AIRWAY: Secretions are seen within the trachea. HEART: Size within normal limits. Mild coronary artery atherosclerosis. MEDIASTINUM: No gross evidence of adenopathy. Small hiatal hernia is present. VASCULATURE: No aortic aneurysm. MUSCULOSKELETAL: No acute osseous abnormalities , mild atherosclerosis of the arterial vasculature. SOFT TISSUES/LYMPH NODES: Unremarkable. LOWER NECK: No significant findings. UPPER ABDOMEN: Scattered low density hepatic cysts are present. IMPRESSION: 1. Stable exam with postsurgical changes to the right lung. No new or enlarging pulmonary nodules. 2. Moderate to severe emphysema changes. 3. Small hiatal hernia. [facility], , 09/06/2024 11:50 AM
== END | disposition home or self-care (01) ==
LOC: RADCTMAIN 10:04
PROVIDERS: ATTEND Internal Medicine
DX: C34.90 Malignant neoplasm of unspecified part of unspecified bronchus or lung (principal); J43.9 Emphysema, unspecified; K44.9 Diaphragmatic hernia without obstruction or gangrene
CPT/HCPCS: 82565; 84520; 71260; 36415; Q9967